=== PATIENT | male | born 1965 | race Caucasian/White ===

== ENCOUNTER → 2017-05-29 09:05 | Outpatient (REF) | payer BC, SELFPAY ==
[2017-05-29 14:00] LABS: Basophils # 0.1 K/mm3 (0-0.2); Basophils % 0.8 % (0.1-2.0); Eosinophils # 0.3 K/mm3 (0.0-0.4); Eosinophils % 4.4 % (0.1-12.0); Hematocrit 44.2 % (42.0-52.0); Hemoglobin 14.7 g/dL (14.1-18.0); Lymphocytes # 2.7 K/mm3 (0.7-4.5); Lymphocytes % 34.7 K/mm3 (10-50); Mean Corpuscular HGB Conc 33.2 g/dL (31.8-35.4); Mean Corpuscular Hemoglobin 31.7 pg (27.0-31.2); Mean Corpuscular Volume 95.5 fl (80-94); Mean Platelet Volume 8.9 fl (7.4-10.4); Monocytes # 0.5 K/mm3 (0.1-1.0); Monocytes % 6.5 % (1.7-9.3); Neutrophils # 4.2 K/mm3 (1.8-7.8); Neutrophils % 53.6 % (37.0-80.0); Platelet Count 222 K/mm3 (142-424); Red Blood Count 4.63 M/mm3 (4.60-6.20); Red Cell Distribution Width 12.6 % (11.5-17.5); White Blood Count 7.8 K/mm3 (4.8-10.8)
[2017-05-29 14:39] LABS: Alanine Aminotransferase 29 U/L (12-78); Albumin Level 4.4 gm/dL (3.4-5.0); Albumin/Globulin Ratio 1.6 (1.1-1.8); Alkaline Phosphatase 62 U/L (46-116); Anion Gap 12.8 mEq/L (5-15); Aspartate Amino Transferase 19 U/L (15-37); Blood Urea Nitrogen 15 mg/dL (7-18); Calcium 9.2 mg/dL (8.5-10.1); Carbon Dioxide 30 mmol/L (21.0-32.0); Chloride 104 mmol/L (98-107); Chol/HDL Ratio 3.1 (1-3.5); Cholesterol 199 mg/dL (140-200); Estimated Glomerular Filt Rate 88 ml/min (>60); GFR (African American) 107 ML/MIN (>60); Globulin 2.8 gm/dl (1.3-3.2); Glucose 143 mg/dL (74-106); HDL Cholesterol 64 mg/dL (27-67); LDL Cholesterol 112 mg/dL (0-130); Potassium 4.8 mmoL/L (3.5-5.1); Sodium 142 mmol/L (136-145); T4 (Thyroxine) 5.8 ug/dl (4.7-13.3); Total Protein,Serum 7.2 gm/dL (6.4-8.2); Triglycerides 115 mg/dL (30-200); VLDL Cholesterol 23 mg/dL (0-40)
[2017-05-31 11:09] LABS: PSA, Free 0.14 ng/mL; Prostate Specific Ag 0.6 ng/mL (0.0-4.0); Vitamin D 25 Hydroxy 9.5 ng/mL (30.0-100.0)
== END ==
LOC: LAB 09:05
PROVIDERS: Visit Provider Physician Assistant
DX: Z13.1 Encounter for screening for diabetes mellitus (principal); Z13.220 Encounter for screening for lipoid disorders; Z12.5 Encounter for screening for malignant neoplasm of prostate; Z13.29 Encounter for screening for other suspected endocrine disorder
CPT/HCPCS: 80053; 80061; 82652; 84153; 84154; 84436; 84443; 85025

== ENCOUNTER → 2017-11-26 13:56 | Outpatient (REF) | payer BC, SELFPAY ==
[2017-11-26 18:36] LABS: Basophils % 0.5 % (0.1-2.0); Eosinophils # 0.3 K/mm3 (0.0-0.4); Eosinophils % 3.5 % (0.1-12.0); Hematocrit 44.7 % (42.0-52.0); Hemoglobin 15.2 g/dL (14.1-18.0); Lymphocytes # 3.3 K/mm3 (0.7-4.5); Mean Corpuscular HGB Conc 33.9 g/dL (31.8-35.4); Mean Corpuscular Hemoglobin 32.1 pg (27.0-31.2); Mean Corpuscular Volume 94.8 fl (80-94); Mean Platelet Volume 8.7 fl (7.4-10.4); Monocytes # 0.5 K/mm3 (0.1-1.0); Monocytes % 6.3 % (1.7-9.3); Neutrophils % 49.7 % (37.0-80.0); Platelet Count 237 K/mm3 (142-424); Red Blood Count 4.72 M/mm3 (4.60-6.20); Red Cell Distribution Width 12.7 % (11.5-17.5); White Blood Count 8.1 K/mm3 (4.8-10.8)
[2017-11-26 19:48] LABS: Alanine Aminotransferase 24 U/L (12-78); Albumin Level 4.1 gm/dL (3.4-5.0); Albumin/Globulin Ratio 1.4 (1.1-1.8); Alkaline Phosphatase 59 U/L (46-116); Anion Gap 16.2 mEq/L (5-15); Aspartate Amino Transferase 12 U/L (15-37); Bilirubin,Total 0.6 mg/dL (0.2-1.0); Blood Urea Nitrogen 10 mg/dL (7-18); Calcium 8.8 mg/dL (8.5-10.1); Carbon Dioxide 25 mmol/L (21.0-32.0); Chloride 107 mmol/L (98-107); Chol/HDL Ratio 3.2 (1-3.5); Cholesterol 201 mg/dL (140-200); Creatinine,Serum 0.68 mg/dL (0.70-1.30); Estimated Glomerular Filt Rate 122 ml/min (>60); GFR (African American) 148 ML/MIN (>60); Glucose 74 mg/dL (74-106); HDL Cholesterol 63 mg/dL (27-67); LDL Cholesterol 102 mg/dL (0-130); Potassium 4.2 mmoL/L (3.5-5.1); Sodium 144 mmol/L (136-145); T4 (Thyroxine) 5.5 ug/dl (4.7-13.3); Thyroid Stimulating Hormone 3.82 uIU/ml (0.358-3.740); Total Protein,Serum 7.1 gm/dL (6.4-8.2); Triglycerides 178 mg/dL (30-200); VLDL Cholesterol 36 mg/dL (0-40)
[2017-11-28 16:42] LABS: PSA, Free 0.19 ng/mL; Prostate Specific Ag 0.5 ng/mL (0.0-4.0); Vitamin D 25 Hydroxy 11.3 ng/mL (30.0-100.0)
== END ==
LOC: LAB 13:56
PROVIDERS: Visit Provider Nurse Practitioner Family
DX: R53.1 Weakness (principal); R19.7 Diarrhea, unspecified; R10.84 Generalized abdominal pain; R53.83 Other fatigue
CPT/HCPCS: 80053; 80061; 82652; 84153; 84154; 84436; 84443; 85025

== ENCOUNTER → 2017-11-29 14:49 | Outpatient (REF) | payer BC, SELFPAY ==
[2017-11-29 14:53] LABS: Adenovirus F 40/41, stool Not Detected (NotDetected); Astrovirus Not Detected (NotDetected); Campylobacter Not Detected (NotDetected); Clostridium Difficile A/B, PCR Not Detected (NotDetected); Cryptosporidium Not Detected (NotDetected); Cyclospora Cayetanesis Not Detected (NotDetected); Entamoeba histolytica Not Detected (NotDetected); Enteroaggregative E coli Not Detected (NotDetected); Enterotoxigenic E coli Not Detected (NotDetected); Giardia lamblia Not Detected (NotDetected); Norovirus Not Detected (NotDetected); Plesimonas Shigalloides, PCR Not Detected (NotDetected); Rotavirus A Not Detected (NotDetected); Salmonella, PCR Not Detected (NotDetected); Sapovirus Not Detected (NotDetected); Shiga-like toxin E coli Not Detected (NotDetected); Shigella Enterovasive E coli Not Detected (NotDetected); Vibrio Cholerae Not Detected (NotDetected); Vibrio, PCR Not Detected (NotDetected); Yersinia Entercolitica, PCR Not Detected (NotDetected)
[2017-11-29 17:02] LABS: Enteropathogenic E coli Detected (NotDetected)
[2017-12-05 06:47] LABS: H. pylori Stool Ag, EIA Negative (Negative)
== END ==
LOC: LAB 14:49
PROVIDERS: Visit Provider Nurse Practitioner Family
DX: R53.1 Weakness (principal)
CPT/HCPCS: 87338; 87507

== ENCOUNTER → 2017-12-02 07:59 | Outpatient (CLI) | payer BC, SELFPAY ==
--- NOTE | 2017-12-02 08:30 | US_ITS ---
US abdomen complete HISTORY: Abdominal cramping, abdominal pain ITS.REASON: pain ORDERING PHYSICIAN: Radha Collier PATIENT AGE: 52 years COMPARISON: None FINDINGS: PANCREAS:Unremarkable. No obvious mass or abnormal fluid collection. No ductal dilatation LIVER:No focal liver lesions demonstrated. Homogeneous echogenicity. No intrahepatic biliary ductal dilatation evident RIGHT KIDNEY:Unremarkable. Normal size and echogenicity. No hydronephrosis LEFT KIDNEY:Unremarkable. No hydronephrosis. Normal size and echogenicity. GALLBLADDER:No gallstones, gallbladder wall thickening, pericholecystic fluid, or biliary dilatation. There is a small amount sludge within the gallbladder which is a question clinical significance. AORTA:No evidence of aneurysmal dilatation. SPLEEN:Unremarkable. Normal size and echogenicity ASCITES:None demonstrated. IMPRESSION: Small amount gallbladder sludge/concentrated bile otherwise negative abdominal ultrasound. No gallstones or other significant anomalies.
== END ==
PROVIDERS: Family Provider Physician Assistant; PCP Physician Assistant; Visit Provider Nurse Practitioner Family
DX: R10.84 Generalized abdominal pain (principal)
CPT/HCPCS: 76700

== ENCOUNTER → 2017-12-23 08:26 | Outpatient (POV) | payer BC, SELFPAY | PROVIDERS: Visit Provider Nurse Practitioner Acute Care | DX: Z00.00 Encounter for general adult medical examination without abnormal findings (principal) ==

== ENCOUNTER → 2017-12-25 10:12 | Outpatient (CLI) | payer BC, SELFPAY ==
--- NOTE | 2017-12-25 10:17 | NM_ITS ---
NM hepatobiliary w pharm HISTORY: ITS.REASON: Right upper quad pain ORDERING PHYSICIAN: Radha Collier PATIENT AGE: 52 years COMPARISON: None DOSE: 7.7 MCI TC Choletec Fatty Meal: Ensure FINDINGS: Homogeneous activity is present within the hepatic parenchyma. Activity is present in the gallbladder by 10 minutes. Activity is present in the small bowel by 20 minutes. The gallbladder ejection fraction is calculated to be 76% The patient did not report pain or other symptoms during the fatty meal. IMPRESSION: Unremarkable hepatobiliary scan and gallbladder ejection fraction. No evidence of common or cystic duct obstruction with normal gallbladder ejection fraction
== END ==
PROVIDERS: Family Provider Physician Assistant; PCP Physician Assistant; Visit Provider Nurse Practitioner Family
DX: K82.8 Other specified diseases of gallbladder (principal)
CPT/HCPCS: 78227

== ENCOUNTER → 2018-02-03 09:18 | Outpatient (POV) | payer BC, SELFPAY | PROVIDERS: Visit Provider Nurse Practitioner Acute Care | DX: Z00.00 Encounter for general adult medical examination without abnormal findings (principal) ==

== ENCOUNTER → 2018-02-04 11:44 | Outpatient (CLI) | payer BC, SELFPAY ==
[2018-02-04 11:48] LABS: Adenovirus F 40/41, stool Not Detected (NotDetected); Astrovirus Not Detected (NotDetected); Campylobacter Not Detected (NotDetected); Clostridium Difficile A/B, PCR Not Detected (NotDetected); Cryptosporidium Not Detected (NotDetected); Cyclospora Cayetanesis Not Detected (NotDetected); Entamoeba histolytica Not Detected (NotDetected); Enteroaggregative E coli Not Detected (NotDetected); Enteropathogenic E coli Not Detected (NotDetected); Enterotoxigenic E coli Not Detected (NotDetected); Giardia lamblia Not Detected (NotDetected); Norovirus Not Detected (NotDetected); Plesimonas Shigalloides, PCR Not Detected (NotDetected); Rotavirus A Not Detected (NotDetected); Salmonella, PCR Not Detected (NotDetected); Sapovirus Not Detected (NotDetected); Shiga-like toxin E coli Not Detected (NotDetected); Shigella Enterovasive E coli Not Detected (NotDetected); Vibrio Cholerae Not Detected (NotDetected); Vibrio, PCR Not Detected (NotDetected); Yersinia Entercolitica, PCR Not Detected (NotDetected)
== END ==
PROVIDERS: PCP Physician Assistant; Visit Provider Nurse Practitioner Acute Care
DX: R19.7 Diarrhea, unspecified (principal)
CPT/HCPCS: 87507

== ENCOUNTER → 2019-06-17 13:53 | Outpatient (CLI) | payer BC, SELFPAY ==
[2019-06-17 14:47] LABS: Chloride 103 mmol/L (98-107); Potassium 4.3 mmoL/L (3.5-5.1); Sodium 138 mmol/L (136-145)
[2019-06-17 14:50] LABS: Alanine Aminotransferase 22 U/L (12-78); Albumin Level 4.4 g/dl (3.5-5.0); Albumin/Globulin Ratio 1.9 (1.1-1.8); Alkaline Phosphatase 52 U/L (38-126); Anion Gap 11.3 mEq/L (5-15); Aspartate Amino Transferase 27 U/L (17-59); Bilirubin,Total 0.7 mg/dl (0.2-1.3); Blood Urea Nitrogen 18 mg/dl (9-20); Calcium 9.6 mg/dl (8.4-10.2); Carbon Dioxide 28 mmol/L (22.0-30.0); Chol/HDL Ratio 3.8 (1-3.5); Cholesterol 192 mg/dl (140-200); Estimated Glomerular Filt Rate 78 ml/min (>60); GFR (African American) 94 ML/MIN (>60); Globulin 2.3 g/dL (1.3-3.2); Glucose 93 mg/dl (74-100); HDL Cholesterol 50 mg/dl (40-60); Total Protein,Serum 6.7 g/dl (6.3-8.2); Triglycerides 128 mg/dl (30-150); VLDL Cholesterol 26 mg/dL (0-40)
[2019-06-17 15:02] LABS: Direct LDL Cholesterol 142.24 mg/dL (100-129)
[2019-06-17 15:22] LABS: T4 (Thyroxine) 6.2 ug/dl (5.53-11.0)
[2019-06-17 15:35] LABS: Thyroid Stimulating Hormone 2.73 uIU/mL (0.465-4.68)
[2019-06-17 21:09] LABS: Basophils # 0.1 K/mm3 (0-0.2); Eosinophils # 0.3 K/mm3 (0.0-0.4); Eosinophils % 3.3 % (0.1-12.0); Hematocrit 42.7 % (42.0-52.0); Lymphocytes # 2.6 K/mm3 (0.7-4.5); Lymphocytes % 35.1 % (10-50); Mean Corpuscular HGB Conc 32.7 g/dL (31.8-35.4); Mean Corpuscular Hemoglobin 32.1 pg (27.0-31.2); Mean Corpuscular Volume 98.1 fl (80-94); Mean Platelet Volume 9.5 fl (7.4-10.4); Monocytes # 0.5 K/mm3 (0.1-1.0); Monocytes % 6.8 % (1.7-9.3); Neutrophils # 4.1 K/mm3 (1.8-7.8); Neutrophils % 53.8 % (37.0-80.0); Platelet Count 225 K/mm3 (142-424); Red Blood Count 4.35 M/mm3 (4.60-6.20); Red Cell Distribution Width 12.7 % (11.5-17.5); White Blood Count 7.5 K/mm3 (4.8-10.8)
[2019-06-19 10:34] LABS: Folate 13.6 ng/mL (>3.0); PSA, Free 0.16 ng/mL; Prostate Specific Ag 0.6 ng/mL (0.0-4.0); Vitamin B12 541 pg/mL (232-1245); Vitamin D 25 Hydroxy 9.3 ng/mL (30.0-100.0)
== END ==
PROVIDERS: Visit Provider Physician Assistant
DX: E01.0 Iodine-deficiency related diffuse (endemic) goiter (principal); E55.9 Vitamin D deficiency, unspecified; R97.20 Elevated prostate specific antigen [PSA]
CPT/HCPCS: 80053; 80061; 82607; 82652; 82746; 84153; 84154; 84436; 84443; 85025

== ENCOUNTER → 2019-07-02 08:33 | Outpatient (CLI) | payer BC, SELFPAY ==
--- NOTE | 2019-07-02 08:41 | CT_ITS ---
PROCEDURE: CT LUNG SCREENING CLINICAL INDICATION: Smoker X 40 years Eighty pack-year smoking history, asymptomatic for lung cancer COMPARISON: [facility] CTA-CHEST from 09/05/2015 TECHNIQUE: The exam was performed on a GE Light Speed [address] scanner using 2.90 mGy CTDI. A low dose helical CT CHEST was performed on a multi-detector scanner. All CT scans at the facility use one or more dose reduction, viz: automated exposure control, ma/kV adjustment per patient size (including targeted exams where dose is matched to indication, i.e. head), or iterative reconstruction technique. The LDCT was performed in a facility that meets the criteria for the screening program. Data regarding this exam was submitted to ACR which is an approved registry. The order for this exam indicates that it came as a result of a lung cancer screening counseling shard decision-making visit that included all the elements required of such a visit including smoking cessation. The radiologist interpreting this exam meets the CMS criteria for the LDCT lung cancer screening program. The exam is reported using the Lung-RADS classification scale and reported to the ACR registry. NOTE: This study was performed for the specific purposes of lung cancer screening and is not an alternative to diagnostic chest CT. RADIATION DOSE: CTDI vol(CT dose Index-volume) = 2.90mG DLP (Dose Length Product) = 117.77 mGcm FINDINGS: COPD with paraseptal emphysema. Biapical fibronodular changes are present. Right apical nodule noted at 10 mm. This is probably not significantly changed given the slight difference in slice orientation and may be related to fibrotic change. 5 mm noncalcified nodule right upper lobe image 35 series 4 not readily apparent on the previous exam. 5 mm nodule right lower lobe image 47 series 4 also not readily apparent on the previous study. 5 mm noncalcified nodule left apex unchanged. 6 mm sub solid nodule left upper lobe image 31 not readily apparent previously OTHER FINDINGS: Coronary artery calcification. Old sternal fracture IMPRESSION: Lung rads category 3 probably benign finding. There are 3 new nodules not readily apparent on the previous study which are 6 mm or less Recommend six-month follow-up diagnostic CT without and with contrast. Dictated by: Murray Mayo MD 07/06/2019 09:24 Electronically signed by Murray Mayo MD in [place] 07/06/2019 09:24
--- NOTE | 2019-07-02 09:08 | US_ITS ---
PROCEDURE: US THYROID CLINICAL INDICATION: Thyromegaly COMPARISON: No exams were available for comparison FINDINGS: Right lobe: 4.3 x 1.8 x 1.3 cm Left lobe: 3.6 x 1.1 x 1.4 cm Isthmus: Unremarkable Additional findings: There is homogeneous echogenicity of both lobes of the thyroid gland. No discrete nodule IMPRESSION: Unremarkable thyroid ultrasound Dictated by: Murray Mayo MD 07/02/2019 17:40 Electronically signed by Murray Mayo MD in [place] 07/02/2019 17:40
== END ==
PROVIDERS: PCP Physician Assistant; Visit Provider Physician Assistant
DX: E01.0 Iodine-deficiency related diffuse (endemic) goiter (principal); R97.20 Elevated prostate specific antigen [PSA]; Z87.891 Personal history of nicotine dependence; Z12.2 Encounter for screening for malignant neoplasm of respiratory organs
CPT/HCPCS: 76536

== ENCOUNTER → 2019-11-16 12:22 | Outpatient (CLI) | payer BC, SELFPAY ==
[2019-11-17 15:22] LABS: Covid-19 Nasal PCR Sendout Lex NOT DETECTED
== END ==
PROVIDERS: PCP Physician Assistant; Visit Provider Physician Assistant
DX: Z03.818 Encounter for observation for suspected exposure to other biological agents ruled out (principal)
CPT/HCPCS: 87275; 87276; U0004

== ENCOUNTER → 2020-01-11 08:45 | Outpatient (CLI) | payer BC, SELFPAY ==
--- NOTE | 2020-01-11 08:45 | CT_ITS ---
PROCEDURE: CT CHEST WO/W CON CLINCAL INDICATION: 6 mth f/u follow up, lung nodules current smoker COMPARISON: CT [facility] CTA-CHEST from 09/05/[address] LUNG SCREENING from 07/02/2019 TECHNIQUE: IV Contrast: 75ml Optiray 350 Axial images obtained with sagittal and coronal reformats. All CT scans at the facility use one or more dose reduction, viz: automated exposure control, ma/kV adjustment per patient size (including targeted exams where dose is matched to indication, i.e. head), or iterative reconstruction technique. FINDINGS: HEART AND MEDIASTINAL STRUCTURES: There are scattered small mediastinal lymph nodes. Coronary artery calcifications are present. No mediastinal or hilar mass or adenopathy. No evidence of aortic aneurysm or dissection. No evidence of central pulmonary embolus. LUNGS AND PLEURAL SPACES: COPD with pulmonary fibrotic changes and scattered areas of scarring. Paraseptal emphysematous changes are present. There is a 1 cm irregular opacity in the right apex not significantly changed. Left apical nodular opacities are also noted not significantly changed. These are consistent with areas of scarring. No new suspicious nodules are evident. No central obstructing lesions. Previously noted retrosternal soft tissue density no longer apparent. Previously noted sternal fracture has healed. Previously noted 5 mm nodule in the right upper lobe centrally is not apparent on today's exam. Previously noted sub solid nodule left upper lobe not apparent on today's exam BONY STRUCTURES: Old right-sided rib fractures UPPER ABDOMEN: Unremarkable. ADDITIONAL FINDINGS: No other significant abnormalities. IMPRESSION: COPD with paraseptal emphysematous changes and scattered areas of scarring. Previously noted new nodules in the right upper lobe and left upper lobe are not evident on today's exam and may have been inflammatory or infectious. No new nodules apparent. Dictated by: Murray Mayo MD 01/12/2020 08:56 Murray Mayo MD in [place] 01/12/2020 08:56
[2020-01-11 09:37] LABS: Blood Urea Nitrogen 8 mg/dl (9-20); Estimated Glomerular Filt Rate 88 ml/min (>60); GFR (African American) 106 ML/MIN (>60)
== END ==
PROVIDERS: PCP Physician Assistant; Visit Provider Physician Assistant
DX: R91.1 Solitary pulmonary nodule (principal)
CPT/HCPCS: 36415; 71270; 82565; 84520; Q9967

== ENCOUNTER → 2021-02-15 18:11 | Outpatient (CLI) | payer BC, SELFPAY ==
[2021-02-15 19:02] LABS: Basophils # 0.1 K/mm3 (0-0.2); Basophils % 1.2 % (0.1-2.0); Eosinophils # 0.2 K/mm3 (0.0-0.4); Eosinophils % 2.6 % (0.1-12.0); Hematocrit 47.2 % (42.0-52.0); Hemoglobin 15.7 g/dL (14.1-18.0); Lymphocytes # 2.1 K/mm3 (0.7-4.5); Lymphocytes % 33.3 % (10-50); Mean Corpuscular HGB Conc 33.2 g/dL (31.8-35.4); Mean Corpuscular Hemoglobin 33.3 pg (27.0-31.2); Mean Corpuscular Volume 100.3 fl (80-94); Mean Platelet Volume 8.4 fl (7.4-10.4); Monocytes # 0.5 K/mm3 (0.1-1.0); Monocytes % 8.5 % (1.7-9.3); Neutrophils # 3.4 K/mm3 (1.8-7.8); Neutrophils % 54.4 % (37.0-80.0); Platelet Count 278 K/mm3 (142-424); Red Blood Count 4.71 M/mm3 (4.60-6.20); Red Cell Distribution Width 12.7 % (11.5-17.5); White Blood Count 6.3 K/mm3 (4.8-10.8)
[2021-02-15 19:05] LABS: Alanine Aminotransferase 24 U/L (12-78); Albumin Level 4.8 g/dl (3.5-5.0); Albumin/Globulin Ratio 1.7 (1.1-1.8); Alkaline Phosphatase 62 U/L (38-126); Anion Gap 15.4 mEq/L (5-15); Aspartate Amino Transferase 36 U/L (17-59); Bilirubin,Total 1.1 mg/dl (0.2-1.3); Blood Urea Nitrogen 10 mg/dl (9-20); Carbon Dioxide 28 mmol/L (22.0-30.0); Chloride 101 mmol/L (98-107); Chol/HDL Ratio 4.1 (1-3.5); Cholesterol 241 mg/dl (140-200); Estimated Glomerular Filt Rate 139 ml/min (>60); GFR (African American) 168 ML/MIN (>60); Globulin 2.9 g/dL (1.3-3.2); Glucose 74 mg/dl (74-100); HDL Cholesterol 59 mg/dl (40-60); Potassium 4.4 mmoL/L (3.5-5.1); Sodium 140 mmol/L (136-145); Total Protein,Serum 7.7 g/dl (6.3-8.2); Triglycerides 234 mg/dl (30-150); VLDL Cholesterol 47 mg/dL (0-40)
[2021-02-15 19:18] LABS: C-Reactive Protein 2.3 mg/L (0-4); Direct LDL Cholesterol 146.99 mg/dL (100-129)
[2021-02-15 19:22] LABS: 25-OH Vitamin D, Total 28.1 ng/mL (30-100)
[2021-02-15 19:29] LABS: Erythrocyte Sedimentation Rate 8 mm/hr (0-20)
[2021-02-15 19:38] LABS: Prostate Specific Ag Screen 0.7 ng/ml (0.0-4.0); Thyroid Stimulating Hormone 4.64 uIU/mL (0.465-4.68)
[2021-02-17 11:14] LABS: Anti-Centromere B Antibodies <0.2 AI (0.0-0.9); Anti-DNA (DS) Ab Qn 1 IU/mL (0-9); Anti-Jo-1 <0.2 AI (0.0-0.9); Anti-Smith Antibody <0.2 AI (0.0-0.9); Antichromatin Antibodies <0.2 AI (0.0-0.9); Antiscleroderma-70 Antibodies <0.2 AI (0.0-0.9); RA Latex Turbid. <10.0 IU/mL (0.0-13.9); RNP Antibodies <0.2 AI (0.0-0.9); Sjogren's Anti-SS-A <0.2 AI (0.0-0.9); Sjogren's Anti-SS-B <0.2 AI (0.0-0.9)
[2021-02-17 23:13] LABS: Anti-Cyclic Citrullinated Pept 6 units (0-19)
== END ==
LOC: LAB.DROPOF 18:12
PROVIDERS: Visit Provider Physician Assistant
DX: M25.50 Pain in unspecified joint (principal); E55.9 Vitamin D deficiency, unspecified; Z12.5 Encounter for screening for malignant neoplasm of prostate
CPT/HCPCS: 80053; 80061; 82306; 84443; 85025; 85651; 86140; 86200; 86225; 86235; 86431; G0103

== ENCOUNTER → 2021-09-27 07:19 | Outpatient (CLI) | payer BC, SELFPAY ==
--- NOTE | 2021-09-27 | XR_ITS ---
FINAL REPORT CLINICAL HISTORY: STRAIN OF MUSCLE LT SHOULDER FINDINGS: LEFT SHOULDER Three views were obtained. There is no acute fracture or dislocation. The joint spaces appear normal. No soft tissue abnormality is identified. IMPRESSION: No acute process. Reviewed, Interpreted and Dictated by Alejandro Fried III, MD Transcribed by Louann Fabian Authenticated by Alejandro Fried III, MD on 09/27/2021 08:55:44 AM [facility]
--- NOTE | 2021-09-27 07:25 | XR_ITS ---
FINAL REPORT CLINICAL HISTORY: OSTEOARTHRITIS, LEFT POSTERIOR KNEE PAIN FINDINGS: LEFT KNEE Three views were obtained. There is no acute fracture or dislocation. No joint effusion is identified. The joint spaces appear normal. No soft tissue abnormality is identified. IMPRESSION: No acute process. Reviewed, Interpreted and Dictated by Alejandro Fried III, MD Transcribed by Louann Fabian Authenticated by Alejandro Fried III, MD on 09/27/2021 08:55:45 AM [facility]
== END ==
PROVIDERS: PCP Physician Assistant; Visit Provider Internal Medicine Rheumatology
DX: S46.012A Strain of muscle(s) and tendon(s) of the rotator cuff of left shoulder, initial encounter (principal); M17.12 Unilateral primary osteoarthritis, left knee; M19.90 Unspecified osteoarthritis, unspecified site; R53.83 Other fatigue
CPT/HCPCS: 73030; 73562

== ENCOUNTER 2021-11-28 18:57 | Emergency (ER) | payer BC, SELFPAY ==
[2021-11-28 19:10] VITALS: BP 121/67; PULSE 86; RESP 19; TEMP 36.6; O2SAT 97; BMI 20.9
[2021-11-28 19:55] VITALS: BP 121/67; PULSE 86; RESP 19; TEMP 36.6; O2SAT 97
--- NOTE | 2021-11-28 19:56 | HMH.EDUTC ---
[facility] Disposition Clinical Impression: Encounter for laboratory testing for COVID-19 virus Disposition: Home, Self-Care Condition on Discharge: Good Instructions: DI for COVID-19 (Suspected or Confirmed ), Preventing the Spread of Coronavirus Discharge Instructions Additional Instructions: *Monitor Temp, Over the counter Motrin or Tylenol as directed/as needed Tylenol every 4 hours and Motrin every 6 hours (as long as your family doctor has told you that you can take it) for fever or pain. and straight to ER if unable to lower temp less than 101.0 after medication given *Warm salt water gargles may help to soothe the throat *Throat Lozenges *Warm fluids like tea with honey may help to soothe the throat *Sleep elevated *Humidifier/Vaporizer Follow up IMMEDIATELY for new or worsening symptoms or no Noticeable improvement over the next 48-72 hours. 911 for difficulty breathing or swallowing You were tested for today for COVID19 your test result should be back in the next 24-48 hours, you may check your results on the [facility] My Health Portal Make sure to take your Vitamins Vit. C Vit D and Zinc if you can take them Referrals: Halle Arauz PA [Primary Care Provider] - As needed Forms: Work/School Release Medical Decision Making - Daniel Inquiry Pt receiving controlled substance: No Daniel was queried for this patient: No Vital Signs: 11/28/21 19:10 Temperature 97.9 F Temperature Source Oral Pulse Rate [Right Brachial] 86 Respiratory Rate 19 Blood Pressure [Left Arm] 121/67 Blood Pressure Mean [Left Arm] 85 Blood Pressure Source [Left Arm] Automatic Cuff Blood Pressure Position [Left Arm] Sitting 02 Sat by Pulse Oximetry 97 Oxygen Delivery Method Room Air Orders (Tests/Meds): ORDERS Category Date Time Status Covid-19 Nasal PCR ([facility]) Routine Lab 11/28/21 19:06 Received [facility] HPI - General Stated complaint: covid test-exposed, cough,cortney Time Seen by Provider: 11/28/21 19:35 Mode of Arrival: Ambulatory Source of Information: Patient Limitations: No Limitations Description of Symptoms (Recalled from Triage Doc. by RN): COVID TEST D/T EXPOSURE. C/O CONGESTION AND COUGH X 2 DAYS HEENT Symptoms (Recalled from RN notes): Yes Resp Symptoms (Recalled from RN notes): Yes Skin Symptoms (Recalled from RN notes): No MS Symptoms (Recalled from RN notes): No Functional Status (Recalled from RN notes): WNL - History of Present Illness Provider Complaint: Patient states that he has been having nasal congestion and cough States that his took and at home test and was positive for COVID so he came in to get checked for COVID - Related Data Previous Rx's Medication Instructions Recorded atorvastatin 10 mg tablet 10 mg PO QHS 90 Days #90 tab 02/20/21 cholecalciferol (vitamin D3) 25 1,000 unit PO DAILY #90 cap 02/20/21 mcg (1,000 unit) capsule ergocalciferol (vitamin D2) 1,250 50,000 unit PO QWEEK 90 Days #14 02/20/ mcg (50,000 unit) capsule cap diclofenac sodium 75 mg 75 mg PO BID #60 tab 06/21/21 tablet,delayed release Allergies Allergy/AdvReac Type Severity Reaction Status Date / Time No Known Allergies Allergy Verified 06/21/21 09:38 - Worker's Comp Is this a Worker's Comp case?: No [facility] History - Hepatitis A Screen Attestation statement:: This patient has been screened for Hepatitis A risk factors. I have reviewed the patient's past medical history: Yes Medical History: Reports:: Hypertension Denies:: Diabetes Mellitus Type 1, Diabetes Mellitus Type 2, Internal Pacemaker, Lung Disease, Seizures Comment: CRACKED STERNUM Other Surgeries: Yes: No Previous Surgery. No: Pacemaker Amputation: No Fractures: Yes - Social History Smoking Status: Former smoker Tobacco Type: cigarettes # Packs/Day (cigarettes): 1 Alcohol Intake: current Alcohol Intake Frequency:: 3 or more drinks per day Substance Use Type: denies use Occupational Status: employed Household Member
== END 2021-11-28 20:00 | disposition home or self-care (01) ==
PROVIDERS: Emergency Provider Nurse Practitioner; PCP Physician Assistant
DX: U07.1 COVID-19
CPT/HCPCS: 99212; C9803; G0463; U0003; U0005

== ENCOUNTER → 2022-05-23 11:06 | Outpatient (CLI) | payer BC, SELFPAY ==
[2022-05-23 16:04] LABS: Alanine Aminotransferase 19 U/L (12-78); Albumin/Globulin Ratio 1.9 (1.1-1.8); Alkaline Phosphatase 59 U/L (38-126); Anion Gap 11.5 mEq/L (5-15); Aspartate Amino Transferase 28 U/L (17-59); Bilirubin,Total 0.9 mg/dl (0.2-1.3); Blood Urea Nitrogen 18 mg/dl (9-20); Calcium 9.4 mg/dl (8.4-10.2); Carbon Dioxide 28 mmol/L (22.0-30.0); Chloride 103 mmol/L (98-107); Chol/HDL Ratio 4.8 (1-3.5); Cholesterol 249 mg/dl (140-200); Estimated Glomerular Filt Rate 87 ml/min (>60); GFR (African American) 105 ML/MIN (>60); Globulin 2.6 g/dL (1.3-3.2); Glucose 102 mg/dl (74-100); HDL Cholesterol 52 mg/dl (40-60); Potassium 4.5 mmoL/L (3.5-5.1); Sodium 138 mmol/L (136-145); Total Protein,Serum 7.6 g/dl (6.3-8.2); Triglycerides 152 mg/dl (30-150); VLDL Cholesterol 30 mg/dL (0-40)
[2022-05-23 16:15] LABS: Direct LDL Cholesterol 160.26 mg/dL (100-129)
[2022-05-23 16:25] LABS: 25-OH Vitamin D, Total 29.9 ng/mL (30-100)
[2022-05-23 16:38] LABS: Prostate Specific Ag Screen 0.6 ng/ml (0.0-4.0); Thyroid Stimulating Hormone 3.37 uIU/mL (0.465-4.68)
[2022-05-23 17:08] LABS: Basophils # 0.1 K/mm3 (0-0.2); Eosinophils # 0.3 K/mm3 (0.0-0.4); Eosinophils % 3.2 % (0.1-12.0); Hematocrit 43.1 % (42.0-52.0); Hemoglobin 14.5 g/dL (14.1-18.0); Lymphocytes # 2.3 K/mm3 (0.7-4.5); Mean Corpuscular HGB Conc 33.7 g/dL (31.8-35.4); Mean Corpuscular Hemoglobin 32.5 pg (27.0-31.2); Mean Corpuscular Volume 96.5 fl (80-94); Mean Platelet Volume 9.2 fl (7.4-10.4); Monocytes # 0.6 K/mm3 (0.1-1.0); Monocytes % 6.6 % (1.7-9.3); Neutrophils # 5.2 K/mm3 (1.8-7.8); Neutrophils % 62.1 % (37.0-80.0); Platelet Count 296 K/mm3 (142-424); Red Blood Count 4.46 M/mm3 (4.60-6.20); Red Cell Distribution Width 12.8 % (11.5-17.5); White Blood Count 8.4 K/mm3 (4.8-10.8)
== END ==
PROVIDERS: PCP Physician Assistant; Visit Provider Physician Assistant
DX: Z00.00 Encounter for general adult medical examination without abnormal findings (principal); E55.9 Vitamin D deficiency, unspecified; Z79.899 Other long term (current) drug therapy; Z12.5 Encounter for screening for malignant neoplasm of prostate
CPT/HCPCS: 80053; 80061; 82306; 84443; 85025; G0103

== ENCOUNTER → 2022-06-07 08:12 | Outpatient (CLI) | payer BC, SELFPAY ==
--- NOTE | 2022-06-07 08:12 | CT_ITS ---
FINAL REPORT CLINICAL HISTORY: lung cancer screening CURRENT SMOKER 1PPD X 45 YEARS COMPARISON: 07/02/2019 FINDINGS: Low-Dose Chest CT Axial images were obtained from the lung apex to the mid abdomen by computed tomography. Low-dose protocol was utilized. CTDI vol (mGy): 2.90 DLP (mGy-cm): 116.20 There is no axillary adenopathy. There is no hilar or mediastinal adenopathy. The heart is proper size. There is no pericardial or pleural effusion. On the lung window images, there is a density again identified in the right apex which is stable and favored to be postinflammatory. It appears triangular in configuration and extends to the pleural margin. Similar postinflammatory changes are seen at the left apex. The previously noted nodules in the left upper lobe are no longer seen. The small nodules in the right upper lobe are no longer seen. Limited images of the upper abdomen are unremarkable. IMPRESSION: Biapical pleural and parenchymal scarring. Previously noted multiple nodules seen on exam from June 2019 have resolved, probably inflammatory in nature. Lung RADS category 2. Recommend 12 month follow-up low-dose chest CT. Reviewed, Interpreted and Dictated by Abdifatah Sebastian MD Transcribed by Marilyn Randolph Authenticated and [facility]
== END ==
PROVIDERS: PCP Physician Assistant; Visit Provider Physician Assistant
DX: Z87.891 Personal history of nicotine dependence (principal); Z12.2 Encounter for screening for malignant neoplasm of respiratory organs
CPT/HCPCS: 71271

== ENCOUNTER 2022-09-13 08:33 | Day surgery (SDC) | payer BC, SELFPAY ==
[2022-09-06 14:05] VITALS: BMI 21.7
[2022-09-13 09:05] VITALS: BP 127/90; PULSE 96; RESP 18; TEMP 36.9; O2SAT 98
--- NOTE | 2022-09-13 09:11 | SUR.PREOP ---
Progress # given to
--- NOTE | 2022-09-13 09:23 | P.PN_ITS ---
[facility] Disclaimer: The information contained in this section may have been updated after the patient was seen, as this information can be updated by other users. Medical History Bloating Hypothyroidism Vitamin D deficiency (~06/04/17) Surgical History History of colonoscopy Family History Other No significant family history Social History Smoking Status: Current every day smoker tobacco type: cigarettes packs per day: 1 pack-years: 42 alcohol intake: current substance use type: denies use current occupational status: employed Travel in the last 8 weeks: None household members: spouse housing: house marital status: education level: vocational service: No caffeine: Yes special lis needs: No do you feel safe at home: Yes victim of physical abuse: No victim of emotional abuse: No victim of sexual abuse: No would you like helpful sources: No [facility] Anesthesia Checklist Patient Identification Patient Identification: Arm Band and Verbal (Name & ) Structural Data Admitted From: Home Planned Operative Procedure/s: Colonoscopy Consent for Planned Operative Procedure(s) Verified: Yes NPO Status Verified Time NPO: 00:00 Additional verifications Anesthesia Reactions: No Airway Assessment C-Spine Mobility Assessed: Yes TMJ Mobility Assessed: Yes Dentition: Poor Dentition Neurological Assessment Level of Consciousness: Awake Hx Seizures: No Numbness or tingling in extremities: No Anesthesia Plan Anesthesia Risk discussed: Yes Anesthesia Plan: Verified ASA Class: II Anesthesia Type: MAC
[2022-09-13 09:40] VITALS: O2SAT 98
--- NOTE | 2022-09-13 09:56 | HMH.SCOPE ---
Procedure: Date: 09/13/22 Patient Date of :: 1965 Procedure Performed:: Screening coolonoscopy Indications:: History of polyps Performing Provider:: Candido Vega MD Referring Provider:: Halle Arauz Sedation:: Propofol Procedure:: After placing the patient in the left lateral decubitus position, the colonoscopy was gently inserted into the rectum and under direct visualization advanced to the cecum which was identified by transillumination in the right lower quadrant, identification of the ileocecal valve, appendiceal orifice, and cecal strap. Color, texture, mucosa, and anatomy of the colon were carefully examined with the scope. Findings:: Anal canal: normal Rectum: normal Sigmoid colon: normal without polyps or inflammatory changes Descending colon: normal without polyps or inflammatory changes Splenic flexure: normal Transverse colon: normal without polyps or inflammatory changes Hepatic flexure: normal Ascending colon: normal without polyps or inflammatory changes Cecum: normal Terminal ileum: not visualized Impression: Normal colonoscopy Recommendations:: Follow up examination in about FIVE years or so, sooner if clinically indicated. Complications:: None Estimated blood obtained (mL): 0
[2022-09-13 10:00] VITALS: BP 94/66; PULSE 108; RESP 17; TEMP 36.3; O2SAT 95
[2022-09-13 10:10] VITALS: BP 98/71; PULSE 99; RESP 17; O2SAT 96
[2022-09-13 10:20] VITALS: BP 119/62; PULSE 92; RESP 17; O2SAT 97
[2022-09-13 10:30] VITALS: BP 122/85; PULSE 86; RESP 17; O2SAT 98
== END 2022-09-13 10:44 | disposition home or self-care (01) ==
PROVIDERS: PCP Physician Assistant; Visit Provider Internal Medicine Gastroenterology
PROC: 0DJD8ZZ Inspection of Lower Intestinal Tract, Via Natural or Artificial Opening Endoscopic (ICD-10-PCS; CPT 45378; principal; 2022-09-13 10:00)
DX: Z12.11 Encounter for screening for malignant neoplasm of colon (principal); Z86.010 Personal history of colon polyps; F17.210 Nicotine dependence, cigarettes, uncomplicated; Z79.899 Other long term (current) drug therapy
CPT/HCPCS: 45378; J2704

== ENCOUNTER 2023-06-20 12:28 | Outpatient (CLI) | payer BC, SELFPAY ==
[2023-06-20 13:04] LABS: Basophils % 0.4 % (0.1-2.0); Eosinophils # 0.2 K/mm3 (0.0-0.4); Eosinophils % 2.5 % (0.1-12.0); Hematocrit 46.6 % (42.0-52.0); Hemoglobin 15.9 g/dL (14.1-18.0); Lymphocytes # 2.2 K/mm3 (0.7-4.5); Lymphocytes % 29.4 % (10-50); Mean Corpuscular HGB Conc 34.1 g/dL (31.8-35.4); Mean Corpuscular Hemoglobin 33.9 pg (27.0-31.2); Mean Corpuscular Volume 99.4 fl (80-94); Mean Platelet Volume 8.8 fl (7.4-10.4); Monocytes # 0.5 K/mm3 (0.1-1.0); Neutrophils # 4.5 K/mm3 (1.8-7.8); Neutrophils % 60.7 % (37.0-80.0); Platelet Count 285 K/mm3 (142-424); Red Blood Count 4.69 M/mm3 (4.60-6.20); Red Cell Distribution Width 12.5 % (11.5-17.5); White Blood Count 7.5 K/mm3 (4.8-10.8)
[2023-06-20 13:44] LABS: Alanine Aminotransferase 18 U/L (12-78); Albumin Level 4.9 g/dl (3.5-5.0); Alkaline Phosphatase 93 U/L (38-126); Amylase 80 U/L (30-110); Aspartate Amino Transferase 24 U/L (17-59); Bilirubin,Direct 0.2 mg/dl (0.0-0.4); Bilirubin,Indirect 0.8 mg/dL (0.0-0.9); Bilirubin,Unconjugated 0.7 mg/dL (0.0-1.1); Blood Urea Nitrogen 7 mg/dl (9-20); Calcium 9.9 mg/dl (8.4-10.2); Carbon Dioxide 30 mmol/L (22.0-30.0); Chloride 101 mmol/L (98-107); Chol/HDL Ratio 4.5 (1-3.5); Cholesterol 237 mg/dl (140-200); Estimated Glomerular Filt Rate 99 ml/min (>60); GFR (African American) 120 ML/MIN (>60); Globulin 2.5 g/dL (1.3-3.2); Glucose 89 mg/dl (74-100); HDL Cholesterol 53 mg/dl (40-60); Sodium 138 mmol/L (136-145); Total Protein,Serum 7.4 g/dl (6.3-8.2); Triglycerides 57 mg/dl (30-150); VLDL Cholesterol 11 mg/dL (0-40)
[2023-06-20 13:56] LABS: Direct LDL Cholesterol 146.71 mg/dL (100-129)
[2023-06-20 14:03] LABS: 25-OH Vitamin D, Total 34.4 ng/mL (30-100)
[2023-06-20 14:15] LABS: Thyroid Stimulating Hormone 1.15 uIU/mL (0.465-4.68)
[2023-06-20 14:50] LABS: Vitamin B12 444 pg/mL (239-931)
== END 2023-06-20 23:59 ==
LOC: LAB.DROPOF 12:28
PROVIDERS: PCP Family Medicine; Visit Provider Family Medicine
DX: F19.10 Other psychoactive substance abuse, uncomplicated (principal); Z86.39 Personal history of other endocrine, nutritional and metabolic disease; Z79.899 Other long term (current) drug therapy
CPT/HCPCS: 80053; 80061; 80076; 82150; 82306; 82607; 82746; 84443; 85025

== ENCOUNTER 2023-07-29 12:52 | Outpatient (CLI) | payer BC, SELFPAY ==
--- NOTE | 2023-07-29 12:57 | CA_ITS ---
FINAL REPORT TECHNIQUE: Color Doppler, duplex Doppler and cheng scale sonography of the bilateral neck vasculature was performed. Velocities were measured in the carotid arteries. Stenosis evaluation based on velocity criteria. CLINICAL HISTORY: DIZZINESS,HTN FINDINGS: The peak systolic velocity of the right common carotid artery is 78 cm/sec and internal carotid artery 50 to cm/sec. The diastolic velocity in the internal carotid artery is 19 cm/sec. The ICA/CCA ratio is 0.7. Visually, a small amount of plaque is seen. These findings are consistent with less than 50% stenosis. The external carotid artery is patent. The right vertebral artery is patent with antegrade flow. The peak systolic velocity of the left common carotid artery is 76 cm/sec and internal carotid artery 58 cm/sec. The diastolic velocity in the internal carotid artery is 21 cm/sec. The ICA/CCA ratio is 0.76. Visually, a small amount of plaque is seen. These findings are consistent with less than 50% stenosis. The external carotid artery is patent. The left vertebral artery is patent with antegrade flow. IMPRESSION: No evidence of significant carotid stenosis. Bilateral patent vertebral arteries. If indicated, CTA or MRA could further evaluate. Reviewed, Interpreted and Dictated by Alejandro Fried III, MD Transcribed by Hazel Lozano Authenticated and [facility]
--- NOTE | 2023-07-29 12:57 | CA_ITS ---
APPROVED REPORT EXAM: Comprehensive 2D, Doppler, and color-flow Echocardiogram Director Epidemiology: Yulissa Reilly RVT Ht: 6 ft 0 in Wt: 155lbs BSA: 1.91 BP: 154/82 mmHg Indications: DIZINESS,HTN,ABN EKG,ETOH USE 2D Dimensions LA Volume 16.40 mL LA Volume Index 8.59 mL/m2 (M/F) 16-34 M-Mode Dimensions RVDd 2.34 cm (0.9-2.6) LA Diam 2.29 cm (1.9-4.0) LVDd 4.31 cm (3.5-5.7) LVDs 3.16 cm (3.5-5.7) IVSd 0.47 cm (0.6-1.1) PWd 0.66 cm (0.6-1.1) EF (Teich) 52.50% FS 26.70% EDV (Teich) 83.50 mL ESV (Teich) 39.70 mL LV Diastology E Decel Time 200 (160-240 msec) E/A Ratio 0.8 Aortic Valve OMI Index 1.16 cm2/m2 AoV Peak Alf. 102.0 (50-130 cm/s) AI PHT 376.00 ms AO Peak GR. 4.10 mmHg AO Mean GR. 2.40 (<5 mmHg) AO VTI 17.8 (18-25 cm) OMI (VTI) 2.27 (2.5-4.5 cm2) Mitral Valve MV E Max Alf. 54.0 (40-130 cm/s) MV A Velocity 66.0 (40-130 cm/s) E/A Ratio 0.81 MV PHT 59.0 ms Pulmonary Valve PV Peak Velocity 64.0 (50-150 cm/s) Tricuspid Valve TR P. Velocity 269.00 cm/s RAP Estimate 10.00 mmHg RVSP 38.90 mmHg Left Ventricle The left ventricle is normal size. The left ventricular systolic function is low normal. There is normal left ventricular wall thickness. There is borderline global hypokinesis present. The left ventricular diastolic function is normal. LVEF is 50%. Right Ventricle Right ventricle is mildly dilated. Right ventricle is mildly hypokinetic. Atria The left atrium size is normal. The right atrium size is normal. There is no Doppler evidence of interatrial shunt. Aortic Valve The aortic valve is mildly thickened. There is no aortic valvular stenosis. Mild aortic regurgitation. Mitral Valve The mitral valve leaflets are mildly thickened. No evidence of mitral valve stenosis. Trace mitral regurgitation. Tricuspid Valve The tricuspid valve leaflets are thin and pliable. Trace tricuspid regurgitation. There is insufficient TR jet to estimate RVSP. Pulmonic Valve The pulmonary valve is normal in structure. Trace pulmonic regurgitation. Great Vessels The aortic root is normal in size. The ascending aorta is normal in size. Pericardium There is no pericardial effusion. Other Information Study Quality: Fair Conclusion Normal biventricular systolic function. Mildly dilated RV with mild reduction in RV function. Mild AI. Electronically signed by : Joi Soto MD 07/30/2023 13:12:03
== END 2023-07-29 23:59 ==
LOC: RT 12:53
PROVIDERS: PCP Family Medicine; Visit Provider Family Medicine
DX: R42 Dizziness and giddiness (principal); R94.31 Abnormal electrocardiogram [ECG] [EKG]
CPT/HCPCS: 93306; 93880

== ENCOUNTER 2023-08-01 22:20 | Observation (INO) | payer BC, SELFPAY ==
[2023-08-01 22:20] VITALS: BP 172/116; PULSE 121; RESP 24; TEMP 36.6; O2SAT 88; BMI 20.7
--- NOTE | 2023-08-01 22:21 | ECG_ITS ---
APPROVED REPORT Exam: Resting ECG HR:101 bpm ECG Measurements Heart Rate 101 AXES HI 159 P 88 QRSd 97 QRS 94 QT 332 T 74 QTc 390 Conclusion SINUS TACHYCARDIA WITH OCCASIONAL SUPRAVENTRICULAR PREMATURE COMPLEXES POSSIBLE LEFT ATRIAL ENLARGEMENT [-0.1mV P-WAVE IN V1/V2] BORDERLINE RIGHT AXIS DEVIATION [QRS AXIS > 90] ABNORMAL RHYTHM ECG Electronically signed by : ALEKSANDAR MANZO, 08/02/2023 11:42:30
--- NOTE | 2023-08-01 22:24 | XR_ITS ---
PROCEDURE INFORMATION: Exam: XR Chest Exam date and time: 08/01/2023 10:28 PM Age: 58 years old Clinical indication: Shortness of breath; Additional info: SOA TECHNIQUE: Imaging protocol: Radiologic exam of the chest. Views: 1 view. COMPARISON: CT LUNG SCREENING 06/07/2022 8:26 AM FINDINGS: Lungs: Hyperinflation compatible with COPD. Lungs are otherwise clear. Pleural spaces: Unremarkable. No pleural effusion. No pneumothorax. Heart/Mediastinum: Unremarkable. No cardiomegaly. Bones/joints: Unremarkable. IMPRESSION: COPD. No acute disease.
[2023-08-01 22:31] LABS: VBG Base Excess -0.1 mmol/L (-2.4-2.3); VBG HCO3 24.4 mmol/L (23-30); VBG Oxygen Saturation 87.6 % (50-70); VBG PCO2 38.7 mmol/L (35-51); VBG PH 7.42 mmol/L (7.31-7.41); VBG PO2 54.5 mmol/L (28-40); VBG Total CO2 25.6 mmol/L (23-27)
[2023-08-01 22:32] LABS: Basophils # 0.3 K/mm3 (0-0.2); Basophils % 2.1 % (0.1-2.0); Eosinophils # 4.3 K/mm3 (0.0-0.4); Eosinophils % 31.6 % (0.1-12.0); Hematocrit 45.3 % (42.0-52.0); Hemoglobin 15.4 g/dL (14.1-18.0); Lymphocytes # 2.6 K/mm3 (0.7-4.5); Lymphocytes % 18.7 % (10-50); Mean Corpuscular HGB Conc 34.1 g/dL (31.8-35.4); Mean Corpuscular Hemoglobin 33.2 pg (27.0-31.2); Mean Corpuscular Volume 97.4 fl (80-94); Mean Platelet Volume 7.7 fl (7.4-10.4); Monocytes # 0.9 K/mm3 (0.1-1.0); Monocytes % 6.6 % (1.7-9.3); Neutrophils # 5.6 K/mm3 (1.8-7.8); Neutrophils % 40.9 % (37.0-80.0); Platelet Count 301 K/mm3 (142-424); Red Blood Count 4.65 M/mm3 (4.60-6.20); Red Cell Distribution Width 13.4 % (11.5-17.5); White Blood Count 13.6 K/mm3 (4.8-10.8)
[2023-08-01 22:34] LABS: Lactate Venous 2.4 mmol/L (0.4-2.0)
[2023-08-01 22:39] LABS: Chloride 103 mmol/L (98-107)
[2023-08-01] MEDS: METHYLPREDNISOLONE SOD SUCC 125MG VIAL 125 MG IV (22:39)
[2023-08-01 22:40] LABS: Potassium 4.3 mmoL/L (3.5-5.1); Sodium 138 mmol/L (136-145)
[2023-08-01 22:42] LABS: Alanine Aminotransferase 31 U/L (12-78); Aspartate Amino Transferase 30 U/L (17-59); Blood Urea Nitrogen 11 mg/dl (9-20); Creatinine Clearance Estimated 112 mL/min (50-200); Estimated Glomerular Filt Rate 115 ml/min (>60); GFR (African American) 140 ML/MIN (>60)
[2023-08-01 22:43] LABS: Albumin Level 4.3 g/dl (3.5-5.0); Albumin/Globulin Ratio 1.3 (1.1-1.8); Alkaline Phosphatase 52 U/L (38-126); Anion Gap 10.3 mEq/L (5-15); Bilirubin,Total 1.1 mg/dl (0.2-1.3); Calcium 9.5 mg/dl (8.4-10.2); Carbon Dioxide 29 mmol/L (22.0-30.0); Globulin 3.2 g/dL (1.3-3.2); Glucose 101 mg/dl (74-100); Total Protein,Serum 7.5 g/dl (6.3-8.2)
[2023-08-01] MEDS: LACTATED RINGERS 1000ML 1,000 ML 999 ML IV (22:51)
[2023-08-01] MEDS: IPRATROPIUM/ALBUTEROL 3 ML NEB 9 ML IH (22:51)
[2023-08-01 22:53] LABS: NT Pro Brain Natriuretic Pep. 252 pg/mL (0-125)
[2023-08-01 22:58] LABS: Troponin I < 0.01 ng/ml (0.00-0.034)
--- NOTE | 2023-08-01 22:59 | HMH.EDCP ---
Discharge Plan Disposition Chief Complaint: Shortness of Breath/Dyspnea Prescriptions Prescriptions: No Action diclofenac sodium 75 mg tablet,delayed release (DR/EC) 75 mg PO BID Qty: 60 0RF cholecalciferol (vitamin D3) 1,250 mcg (50,000 unit) capsule 1,250 mcg PO WEEKLY Qty: 5 0RF sertraline 25 mg tablet 25 mg PO DAILY Qty: 30 2RF bisoprolol fumarate 5 mg tablet 5 mg PO DAILY Qty: 30 3RF ezetimibe 10 mg tablet 10 mg PO DAILY Qty: 30 2RF Discharge ED Provider: Charles Machuca HPI <Charles Machuca MD - Last Filed: 08/01/23 23:08> General Chief Complaint: Shortness of Breath/Dyspnea Stated Complaint: chest pain Time Seen by Provider: 08/01/23 22:26 Mode of Arrival: Ambulatory Source of Information: Patient Limitations: No Limitations Description of Symptoms (Recalled from ER Triage Doc. by RN): pt c/o chest tighness and SOA since saturday History of Present Illness HPI narrative: 58-year-old male history of COPD, hypertension, hypothyroidism presenting with shortness of breath. Patient states that he has been told that he does not have COPD, but for the past 3 to 4 days, he has been getting progressively short of breath. Cough productive of white sputum, this is new. No fevers or chills, but chest pressure has been getting worse since that time. All of this is worse with exertion. No lower extremity edema, nausea, diaphoresis, or any other concerns. Please note that above description of symptoms, in this electronic medical record under categorization of recalled from ER triage doctor by RN are reflective of an initial nursing assessment, however, is not reflective of my full history and physical exam that was personally taken and clarified. Consequentially, this preceding description of symptoms, which may include the patient's categorized chief complaint in the EMR, do not reflect my personal clinical impression, and the ultimate description of history of present illness and patient stated complaints should be deferred to this section of the note. Unless stated otherwise or congruent with this section of the note, additional signs, symptoms, or incongruence should be interpreted as inaccurate with my clinical impression. Related Data Previous Rx's Medication Instructions Recorded bisoprolol fumarate 5 mg tablet 5 mg PO DAILY #30 tabs 06/20/23 cholecalciferol (vitamin D3) 1,250 1,250 mcg PO WEEKLY #5 caps 06/20/23 mcg (50,000 unit) capsule diclofenac sodium 75 mg 75 mg PO BID #60 tabs 06/20/23 tablet,delayed release sertraline 25 mg tablet 25 mg PO DAILY #30 tabs 06/20/23 ezetimibe 10 mg tablet 10 mg PO DAILY #30 tabs 06/21/23 Allergies Allergy/AdvReac Type Severity Reaction Status Date / Time No Known Allergies Allergy Verified 07/15/23 09:41 [facility] <Charles Machuca MD - Last Filed: 08/01/23 23:08> [facility] Disclaimer: The information contained in this section may have been updated after the patient was seen, as this information can be updated by other users. Medical History Bloating Hypothyroidism Vitamin D deficiency (~06/04/17) Surgical History History of colonoscopy Family History Other No significant family history Social History Smoking Status: Current every day smoker tobacco type: cigarettes packs per day: 1 alcohol intake: current substance use type: denies use current occupational status: employed Travel in the last 8 weeks: None household members: spouse housing: house marital status: education level: vocational service: No caffeine: Yes special lis needs: No do you feel safe at home: Yes victim of physical abuse: No victim of emotional abuse: No victim of sexual abuse: No would you like helpful sources: No <Charles Machuca MD - Last Filed: 08/01/23 23:08> ROS Obtained: Yes All systems reviewed & no additional complaints except as documented Physical Exam <Charles Machuca MD - Last Filed: 08/01/23 23:08> General General appearance: alert and in distress (Respiratory) Neck Neck exam: Present trachea midline Chest Chest inspection: Present normal inspection and symmetric chest wall rise Respiratory Respiratory exam: Present wheezes (Diffuse, bilateral), accessory muscle use and prolonged expiratory phase; Absent respiratory distress or stridor Cardiovascular Cardiovascular exam: Present regular rate and normal rhythm Extremities Exam Extremities exam: Absent edema Neurological Exam Neurological exam: Present alert, oriented X3 and CN II-XII intact Skin Skin exam: Present warm and dry; Absent cyanosis, diaphoresis or pallor HEART Score <Charles Machuca MD - Last Filed: 08/01/23 23:08> HEART Score HEART Score assessment performed?: Yes HEART Score: 3 <Geovanni Lazaro MD - Last Filed: 08/02/23 00:23> HEART Score History (anamnesis): Slightly suspicious ECG: Normal Age: 45-65 years Risk factors: 1-2 risk factors Troponin: </= normal limit HEART Score: 2 Critical Care <Charles Machuca MD - Last Filed: 08/01/23 23:08> Critical Care Time Critical Care Time: No Medical Decision Making <Charles Machuca MD - Last Filed: 08/01/23 23:08> Medical Records Medical records reviewed: Yes I reviewed the patient's medical records. Daniel Inquiry Pt receiving controlled substance: No Daniel was queried for this patient: No Vital Signs Vital Signs: 08/01/23 22:20 08/01/23 23:00 08/01/23 23:30 Temperature 97.8 F Temperature Source Oral Pulse Rate 99 H 103 H Pulse Rate [Left] 121 H Respiratory Rate 24 18 14 Blood Pressure 139/83 132/83 Blood Pressure [Right Arm] 172/116 H Blood Pressure Mean 102 99 Blood Pressure Mean [Right Arm] 134 02 Sat by Pulse Oximetry 88 L 94 L 93 L Oxygen Delivery Method Room Air Lab Data Labs: Lab Results 08/01/23 22:15: WBC 13.6 H, RBC 4.65, Hgb 15.4, Hct 45.3, MCV 97.4 H, MCH 33.2 H, MCHC 34.1, RDW 13.4, Plt Count 301, MPV 7.7, Neut % (Auto) 40.9, Lymph % (Auto) 18.7, [place] % (Auto) 6.6, Eos % (Auto) 31.6 H, Baso % (Auto) 2.1 H, Neut # (Auto) 5.6, Lymph # (Auto) 2.6, [place] # (Auto) 0.9, Eos # (Auto) 4.3 H, Baso # (Auto) 0.3 H, Sodium 138, Potassium 4.3, Chloride 103, Carbon Dioxide 29, Anion Gap 10.3, BUN 11, Creatinine 0.70, Estimated Creat Clear 112, Estimated GFR 115, Est GFR ( Amer) 140, Glucose 101 H, Calcium 9.5, Total Bilirubin 1.1, AST 30, ALT 31, Alkaline Phosphatase 52, Troponin I < 0.01, NT-Pro-B Natriuret Pep 252 H, Total Protein 7.5, Albumin 4.3, Globulin 3.2, Albumin/Globulin Ratio 1.3 08/01/23 22:24: VBG pH 7.42 H, VBG pCO2 38.7, VBG pO2 54.5 H, VBG HCO3 24.4, VBG Total CO2 25.6, VBG O2 Saturation 87.6 H, VBG Base Excess -0.1, VBG Lactic Acid 2.4 H 08/01/23 22:15 08/01/23 22:15 Response Orders (Tests/Meds): ED MEDICATIONS Generic Name Dose Route Start Last Admin Trade Name Freq PRN Reason Stop Dose Admin Magnesium Sulfate 2 gm in 50 mls @ 50 mls/hr 08/02/23 00:16 Magnesium Sulfate 2gm/50ml Premix IV 08/02/23 01:15 ONCE ONE Levofloxacin/Dextrose 750 mg in 150 mls @ 100 mls/hr 08/02/23 00:17 Levofloxacin 750mg/150ml Premix IV 08/02/23 01:46 ONCE ONE Discontinued Medications Generic Name Dose Route Start Last Admin Trade Name Freq PRN Reason Stop Dose Admin Albuterol/Ipratropium 9 ml 08/01/23 22:24 08/01/23 22:51 Ipratropium/Albuterol 3 Ml Neb IH 08/01/23 22:25 9 ml ONCE ONE Administration Doxycycline Hyclate 100 mg 08/01/23 22:45 08/01/23 23:01 Doxycycline Hycl 100 Mg Tablet PO 08/01/23 22:46 100 mg ONCE ONE Administration Lactated Ringer's 1,000 mls @ 999 mls/hr 08/01/23 22:44 08/01/23 22:51 Lactated Ringer's 1000 Ml Bag IV 08/01/23 23:44 999 mls/hr .Q1H1M ONE Administration Levalbuterol HCl 1.25 mg 08/01/23 23:40 08/02/23 00:04 Levalbuterol 1.25mg/3ml Neb IH 08/01/23 23:41 1.25 mg ONCE ONE Administration Methylprednisolone Sodium Succinate 125 mg 08/01/23 22:26 08/01/23 22:39 Methylprednisolone Sod Succ 125mg Vial IV 08/01/23 22:27 125 mg ONCE ONE Administration ORDERS Category Date Time Status XR chest portable Stat Exams 08/01/23 22:24 Completed Complete Blood Count Auto Diff Stat Lab 08/01/23 22:15 Completed Comprehensive Metabolic Panel Stat Lab 08/01/23 22:15 Completed NT Pro Brain Natriuretic Pep. Stat Lab 08/01/23 22:15 Completed Troponin I Q3H Lab 08/02/23 01:30 Ordered Troponin I Q3H Lab 08/02/23 04:30 Ordered Troponin I Stat Lab 08/01/23 22:15 Completed Blood Culture Stat Micro 08/01/23 23:00 Received VBG [Venous Blood Gas] Stat RT 08/01/23 22:24 Completed MDM Narrative Medical Decision Narrative: 58-year-old male history of COPD, hypertension, hypothyroidism presenting with shortness of breath. Patient states that he has been told that he does not have COPD, but for the past 3 to 4 days, he has been getting progressively short of breath. Cough productive of white sputum, this is new. No fevers or chills, but chest pressure has been getting worse since that time. All of this is worse with exertion. No lower extremity edema, nausea, diaphoresis, or any other concerns. History obtained with patient. On arrival, patient in mild respiratory distress with tachypnea, wheezing, prolonged expiratory phase and accessory muscle use. Cardiac exam within normal limits other than mild tachycardia. No focal breath sounds. Pulses are equal and symmetric, no lower extremity edema. Differential includes COPD exacerbation, pneumonia, microvascular coronary artery disease, CHF, ACS, GA, coronary artery dissection, pneumothorax, PE, dissection, aortic aneurysm, bronchitis, among others. Workup independently interpreted: Nonactionable VBG. Patient has leukocytosis 13.6, lactate elevated 2.4, likely due to increased work of breathing versus infection. Troponin negative. BNP nonactionable. EKG independently interpreted and significant for sinus tachycardia 101 beats a minute no ST or T wave changes concerning for acute ischemia. UT, QRS, QT intervals within normal limits. Chest x-ray with no obvious consolidation or airspace disease. Patient was given DuoNebs x 3, Solu-Medrol 125. Prior to reevaluation, care handed off to oncoming physician. <Geovanni Lazaro MD - Last Filed: 08/02/23 00:23> Vital Signs Vital Signs: 08/01/23 22:20 08/01/23 23:00 08/01/23 23:30 Temperature 97.8 F Temperature Source Oral Pulse Rate 99 H 103 H Pulse Rate [Left] 121 H Respiratory Rate 24 18 14 Blood Pressure 139/83 132/83 Blood Pressure [Right Arm] 172/116 H Blood Pressure Mean 102 99 Blood Pressure Mean [Right Arm] 134 02 Sat by Pulse Oximetry 88 L 94 L 93 L Oxygen Delivery Method Room Air Lab Data Labs: Lab Results 08/01/23 22:15: WBC 13.6 H, RBC 4.65, Hgb 15.4, Hct 45.3, MCV 97.4 H, MCH 33.2 H, MCHC 34.1, RDW 13.4, Plt Count 301, MPV 7.7, Neut % (Auto) 40.9, Lymph % (Auto) 18.7, [place] % (Auto) 6.6, Eos % (Auto) 31.6 H, Baso % (Auto) 2.1 H, Neut # (Auto) 5.6, Lymph # (Auto) 2.6, [place] # (Auto) 0.9, Eos # (Auto) 4.3 H, Baso # (Auto) 0.3 H, Sodium 138, Potassium 4.3, Chloride 103, Carbon Dioxide 29, Anion Gap 10.3, BUN 11, Creatinine 0.70, Estimated Creat Clear 112, Estimated GFR 115, Est GFR ( Amer) 140, Glucose 101 H, Calcium 9.5, Total Bilirubin 1.1, AST 30, ALT 31, Alkaline Phosphatase 52, Troponin I < 0.01, NT-Pro-B Natriuret Pep 252 H, Total Protein 7.5, Albumin 4.3, Globulin 3.2, Albumin/Globulin Ratio 1.3 08/01/23 22:24: VBG pH 7.42 H, VBG pCO2 38.7, VBG pO2 54.5 H, VBG HCO3 24.4, VBG Total CO2 25.6, VBG O2 Saturation 87.6 H, VBG Base Excess -0.1, VBG Lactic Acid 2.4 H Response Orders (Tests/Meds): ED MEDICATIONS Generic Name Dose Route Start Last Admin Trade Name Freq PRN Reason Stop Dose Admin Magnesium Sulfate 2 gm in 50 mls @ 50 mls/hr 08/02/23 00:16 Magnesium Sulfate 2gm/50ml Premix IV 08/02/23 01:15 ONCE ONE Levofloxacin/Dextrose 750 mg in 150 mls @ 100 mls/hr 08/02/23 00:17 Levofloxacin 750mg/150ml Premix IV 08/02/23 01:46 ONCE ONE Discontinued Medications Generic Name Dose Route Start Last Admin Trade Name Freq PRN Reason Stop Dose Admin Albuterol/Ipratropium 9 ml 08/01/23 22:24 08/01/23 22:51 Ipratropium/Albuterol 3 Ml [facility] 08/01/23 22:25 9 ml ONCE ONE Administration Doxycycline Hyclate 100 mg 08/01/23 22:45 08/01/23 23:01 Doxycycline Hycl 100 Mg Tablet PO 08/01/23 22:46 100 mg ONCE ONE Administration Lactated Ringer's 1,000 mls @ 999 mls/hr 08/01/23 22:44 08/01/23 22:51 Lactated Ringer's 1000 Ml Bag IV 08/01/23 23:44 999 mls/hr .Q1H1M ONE Administration Levalbuterol HCl 1.25 mg 08/01/23 23:40 08/02/23 00:04 Levalbuterol 1.25mg/3ml [facility] 08/01/23 23:41 1.25 mg ONCE ONE Administration Methylprednisolone Sodium Succinate 125 mg 08/01/23 22:26 08/01/23 22:39 Methylprednisolone Sod Succ 125mg Vial IV 08/01/23 22:27 125 mg ONCE ONE Administration ORDERS Category Date Time Status XR chest portable Stat Exams 08/01/23 22:24 Completed Complete Blood Count Auto Diff Stat Lab 08/01/23 22:15 Completed Comprehensive Metabolic Panel Stat Lab 08/01/23 22:15 Completed NT Pro Brain Natriuretic Pep. Stat Lab 08/01/23 22:15 Completed Troponin I Q3H Lab 08/02/23 01:30 Ordered Troponin I Q3H Lab 08/02/23 04:30 Ordered Troponin I Stat Lab 08/01/23 22:15 Completed Blood Culture Stat Micro 08/01/23 23:00 Received VBG [Venous Blood Gas] Stat RT 08/01/23 22:24 Completed Tissue Perfus/Sepsis Re-Eval Sepsis Re-Evaluation Performed: Yes Date Performed: 08/02/23 Time Performed: 00:18 MDM Narrative Medical Decision Narrative: 58-year-old male history of COPD, hypertension, hypothyroidism presenting with shortness of breath. Patient states that he has been told that he does not have COPD, but for the past 3 to 4 days, he has been getting progressively short of breath. Cough productive of white sputum, this is new. No fevers or chills, but chest pressure has been getting worse since that time. All of this is worse with exertion. No lower extremity edema, nausea, diaphoresis, or any other concerns. History obtained with patient. On arrival, patient in mild respiratory distress with tachypnea, wheezing, prolonged expiratory phase and accessory muscle use. Cardiac exam within normal limits other than mild tachycardia. No focal breath sounds. Pulses are equal and symmetric, no lower extremity edema. Differential includes COPD exacerbation, pneumonia, microvascular coronary artery disease, CHF, ACS, GA, coronary artery dissection, pneumothorax, PE, dissection, aortic aneurysm, bronchitis, among others. Workup independently interpreted: Nonactionable VBG. Patient has leukocytosis 13.6, lactate elevated 2.4, likely due to increased work of breathing versus infection. Troponin negative. BNP nonactionable. EKG independently interpreted and significant for sinus tachycardia 101 beats a minute no ST or T wave changes concerning for acute ischemia. UT, QRS, QT intervals within normal limits. Chest x-ray with no obvious consolidation or airspace disease. Patient was given DuoNebs x 3, Solu-Medrol 125. Prior to reevaluation, care handed off to oncoming physician. Tejas MONAHAN: I assumed care of the patient at the time of handoff from the prior provider. On reassessment, patient remains tachycardic, satting 87-90 on room air, tachypneic, diffusely wheezing, still feels bad from a respiratory perspective. Chest x-ray interpreted by me, no obvious pneumonia. Appears consistent with COPD. Patient was given an additional nebulizer treatment of levalbuterol. Approximately 20 mins after this, patient continues to require oxygen supplementation, continues to be diffusely wheezy and dysneic. Given this, I had to interact discussion with the hospitalist on-call for admission for hypoxia and COPD exacerbation. Patient was given IV Levaquin for antibiotic therapy. Patient agreeable to admission.
[2023-08-01 23:00] VITALS: BP 139/83; PULSE 99; RESP 18; O2SAT 94
[2023-08-01] MEDS: DOXYCYCLINE HYCL 100 MG TABLET PO (23:01)
[2023-08-01 23:30] VITALS: BP 132/83; PULSE 103; RESP 14; O2SAT 93
--- NOTE | 2023-08-01 23:34 | PC.NURSE ---
Gave pt blanket no needs at this time
[2023-08-02] VITALS: BP 122/77; PULSE 111; RESP 16; O2SAT 92
[2023-08-02] MEDS: LEVALBUTEROL 1.25MG/3ML NEB 1.25 MG IH (00:04)
--- NOTE | 2023-08-02 00:16 | PC.NURSE ---
House notified for admission
[2023-08-02] MEDS: LEVOFLOXACIN/D5W 750 MG/150 ML 750 MG/150 ML PIGGYBACK 100 MG IV (00:21)
--- NOTE | 2023-08-02 00:30 | PC.NURSE ---
Report to Argenis RN
--- NOTE | 2023-08-02 00:30 | PC.NURSE ---
0020 RECEIVED PHONE REPORT FROM FAYE RN/ED NURSE. PATIENT IS A 58 YO MALE. ADMISSION DIAGNOSIS COPD EXACERBATION. NKA. TO BE ADMITTED TO ROOM 202.
[2023-08-02 00:31] VITALS: BP 124/78; PULSE 101; RESP 20; TEMP 36.6; O2SAT 94
--- NOTE | 2023-08-02 00:38 | P.HP_ITS ---
History of Present Illness *Admission Date: 08/02/23 *Reason for visit:: COPDE *History of present illness: 58 year old male presented to [facility] ED for c/o shortness of breath since Saturday. PMHX of HTN, HLD, depression and tobacco abuse. The pt states that he has not smoked in two weeks in attempts to quit. ED workup revealed oxygen requirement of 2L, leukocytosis of 13.6, EKG that is sinus tachycardia, and chest xray demonstrating hyperinflation of the lungs indicative of COPD without acute disease. The pt reports that he was at [facility] on 07/29/23 for a carotid duplex scan that was unremarkable and echocardiogram that demonstrates LVEF is 50% and mild dilation of the RV with mild reduction. He required multiple duonebs and IV magnesium in the ED. The ED physician consulted the hospitalist team for further medical management. I admitted the pt to the medical floor. The pt still requir es oxygen and repeated duonebs. He has diffuse wheezing throughout. His blood cultures are pending. I have ordered a sputum culture, covid/flu swab, and will continue his IV steroids and antibiotics. [facility] Disclaimer: The information contained in this section may have been updated after the rashida sandovalcarlos was seen, as this information can be updated by other users. Medical History Bloating Hypothyroidism Vitamin D deficiency (~06/04/17) Surgical History History of colonoscopy Family History Other No significant family history Social History Smoking Status: Current every day smoker tobacco type: cigarettes packs per day: 1 alcohol intake: current substance use type: denies use current occupational status: employed Travel in the last 8 weeks: None household members: spouse housing: house marital status: education level: vocational service: No caffeine: Yes special lis needs: No do you feel safe at home: Yes victim of physical abuse: No victim of emotional abuse: No victim of sexual abuse: No would you like helpful sources: No Review of Systems Review of Systems Review of systems:: pertinent systems reviewed and negative unless documented below Meds Home Medications and Allergies Home Medications Medication Instructions Recorded Confirmed Type bisoprolol fumarate 5 mg tablet 5 mg PO DAILY #30 tabs 06/20/23 08/02/23 Rx cholecalciferol (vitamin D3) 1,250 1,250 mcg PO WEEKLY #5 caps 06/20/23 08/02/23 Rx mcg (50,000 unit) capsule diclofenac sodium 75 mg 75 mg PO BID #60 tabs 06/20/23 08/02/23 Rx tablet,delayed release sertraline 25 mg tablet 25 mg PO DAILY #30 tabs 06/20/23 08/02/23 Rx ezetimibe 10 mg tablet 10 mg PO DAILY #30 tabs 06/21/23 08/02/23 Rx New Prescriptions to Start Prescriptions: Allergies Allergy/AdvReac Type Severity Reaction Status Date / Time No Known Allergies Allergy Verified 07/15/23 09:41 Exam Data for Last 24 hours Vital signs and Labs for Last 24 Hours: Temp Pulse Resp BP Pulse Ox O2 Del Method O2 Flow Rate 97.8 F 101 H 20 124/78 92 L Nasal Cannula 2 08/02/23 00:31 08/02/23 00:31 08/02/23 00:31 08/02/23 00:31 08/02/23 00:00 08/02/23 00:31 08/02/23 00:31 Laboratory Results - last 24 hr 08/01/23 22:15: WBC 13.6 H, RBC 4.65, Hgb 15.4, Hct 45.3, MCV 97.4 H, MCH 33.2 H , MCHC 34.1, RDW 13.4, Plt Count 301, MPV 7.7, Neut % (Auto) 40.9, Lymph % (Auto) 18.7, [place] % (Auto) 6.6, Eos % (Auto) 31.6 H, Baso % (Auto) 2.1 H, Neut # (Auto) 5.6, Lymph # (Auto) 2.6, [place] # (Auto) 0.9, Eos # (Auto) 4.3 H, Baso # (Auto) 0.3 H, Sodium 138, Potassium 4.3, Chloride 103, Carbon Dioxide 29, Anion Gap 10.3, BUN 11, Creatinine 0.70, Estimated Creat Clear 112, Estimated GFR 115, Est GFR ( Amer) 140, Glucose 101 H, Calcium 9.5, Total Bilirubin 1.1, AST 30, ALT 31, Alkaline Phosphatase 52, Troponin I < 0.01, NT-Pro-B Natriuret Pep 252 H, Total Protein 7.5, Albumin 4.3, Globulin 3.2, Albumin/Globulin Ratio 1.3 08/01/23 22:24: VBG pH 7.42 H, VBG pCO2 38.7, VBG pO2 54.5 H, VBG HCO3 24.4, VBG Total CO2 25.6, VBG O2 Saturation 87.6 H, VBG Base Excess -0.1, VBG Lactic Acid 2.4 H I & O for Last 24 hours: Intake & Output 07/30/23 07/31/23 08/01/23 08/02/23 23:59 23:59 23:59 23:59 Weight 69.4 kg Constitutional Constitutional: thin and chronically ill appearing *Routine HEENT Exam Head: Present normocephalic and atraumatic Eye: Present EOMI and PERRL ENT: Present mucous membranes moist *Routine Neck Exam Neck: Present supple and full ROM *Routine Respiratory Exam Respiratory: Present wheezes and able to speak in complete sentences *Routine Cardiovascular Exam Cardiovascular: Present tachycardia *Routine Abdominal Exam Abdominal: Present soft and normoactive bowel sounds; Absent tenderness *Routine Rectal Exam Rectal:: deferred *Routine Genitalia Exam Genitalia:: deferred *Routine Extremities Exam Extremities: Present full ROM; Absent edema *Routine Skin Exam Skin: Present intact and warm *Routine Neurological Exam Neurological: Present alert and oriented X3 Assessment and Plan *Assessment and plan (1) SIRS (systemic inflammatory response syndrome): Status: Acute Category: Medical Code(s): R65.10 - Systemic inflammatory response syndrome (SIRS) of non-infectious origin without acute organ dysfunction (2) Acute exacerbation of chronic obstructive pulmonary disease: Status: Acute Category: Medical Code(s): J44.1 - Chronic obstructive pulmonary disease with (acute) exacerbation (3) Acute respiratory failure with hypoxia: Status: Acute Category: Medical Code(s): J96.01 - Acute respiratory failure with hypoxia (4) HTN (hypertension): Status: Acute Category: Medical Code(s): I10 - Essential (primary) hypertension (5) HLD (hyperlipidemia): Status: Acute Category: Medical Code(s): E78.5 - Hyperlipidemia, unspecified (6) PTSD (post-traumatic stress disorder): Status: Acute Category: Medical Code(s): F43.10 - Post-traumatic stress disorder, unspecified Plan 58 year old male presented to [facility] ED for c/o shortness of breath since Saturday. PMHX of HTN, HLD, depression and tobacco abuse. The pt states that he has not smoked in two weeks in attempts to quit. ED workup revealed oxygen requirement of 2L, leukocytosis of 13.6, EKG that is sinus tachycardia, and chest xray demonstrating hyperinflation of the lungs indicative of COPD without acute disease. The pt reports that he was at [facility] on 07/29/23 for a carotid duplex scan that was unremarkable and echocardiogram that demonstrates LVEF is 50% and mild dilation of the RV with mild reduction. He required multiple duonebs and IV magnesium in the ED. The ED physician consulted the hospitalist team for further medical management. I admitted the pt to the medical floor. Plan as to follow: SIRS COPDE ACUTE RESP FAILURE W/ HYPOXIA -leukocytosis of 13.6, HR 121, and RR 20 -pO2 54.4. Currently on 2L NC. please maintain 02 above 90% -lactate 3.2. Continue to trend -continue Levofloxacin 750mg IV daily and solumedrol 60 mg IV BID -blood cultures and sputum cultures pending -Dounebs q 6hr PRN HTN -continue Zebeta 5mg daily HLD -continue Zetia 10mg daily PTSD -continue sertraline 25mg daily FULL CODE REGULAR DIET HEPARIN SQ
--- NOTE | 2023-08-02 00:46 | PC.NURSE ---
0045 PATIENT ARRIVED VIA STRETCHER AND ADMITTED TO ROOM 202.
[2023-08-02 00:53] VITALS: BP 127/75; PULSE 114; RESP 16; TEMP 36.9; O2SAT 92; BMI 19.7
[2023-08-02] MEDS: MAGNESIUM SULFATE IN WATER 2 GM/50 ML PIGGYBACK IV (01:21)
[2023-08-02 01:37] LABS: Reflex Lactic Add Lactic Reflex
[2023-08-02 02:10] LABS: Lactic Acid Follow Up (RFLX 1) 3.2 mmol/L (0.7-2.1); Troponin I < 0.01 ng/ml (0.00-0.034)
[2023-08-02 02:15] LABS: Coronavirus 19, PCR Not Detected (NotDetected); Influenza A, PCR Not Detected (NotDetected); Influenza B, PCR Not Detected (NotDetected)
--- NOTE | 2023-08-02 02:25 | PC.NURSE ---
BEVERLY BELTRAN NOTIFIED OG 3.2 LACTATE. NO NEW ORDERS AT THIS TIME.
[2023-08-02 03:37] LABS: Reflex Lactic (2 hrs) Add Lactic Reflex
--- NOTE | 2023-08-02 03:48 | PC.NURSE ---
PATIENT RESTING QUIETLY IN BED WITH HOB ELEVATED 40 DEGREES. 02 AT 2LNC. NO C/O PAIN. REPORTS GETS VERY SOA WITH ACTIVITY.
[2023-08-02 04:00] VITALS: BP 112/74; PULSE 109; RESP 16; TEMP 37.1; O2SAT 95; BMI 19.7
[2023-08-02 04:43] LABS: Basophils # 0.1 K/mm3 (0-0.2); Basophils % 0.8 % (0.1-2.0); Eosinophils # 0.1 K/mm3 (0.0-0.4); Lymphocytes # 0.8 K/mm3 (0.7-4.5); Mean Corpuscular HGB Conc 33.4 g/dL (31.8-35.4); Mean Corpuscular Hemoglobin 33.1 pg (27.0-31.2); Mean Corpuscular Volume 99.1 fl (80-94); Monocytes # 0.1 K/mm3 (0.1-1.0); Monocytes % 1.5 % (1.7-9.3); Neutrophils # 8.3 K/mm3 (1.8-7.8); Neutrophils % 88.7 % (37.0-80.0); Platelet Count 291 K/mm3 (142-424); Red Blood Count 4.24 M/mm3 (4.60-6.20); Red Cell Distribution Width 13.5 % (11.5-17.5); White Blood Count 9.3 K/mm3 (4.8-10.8)
[2023-08-02 04:55] LABS: MANUAL DIFFERENTIAL MANUAL DIFFERENTIAL (MANUAL DIFF)
[2023-08-02 04:56] LABS: Lactic Acid Follow up (RFLX 2) 4.1 mmol/L (0.7-2.1)
--- NOTE | 2023-08-02 04:59 | PC.NURSE ---
CRITICAL LACTIC 4.1 REPORTED TO BEVERLY BELTRAN NEW ORDER RECEIVED FOR LR 1 LITER AT 250 ML/HR X1 BAG.
[2023-08-02 05:01] LABS: Chloride 105 mmol/L (98-107); Potassium 4.3 mmoL/L (3.5-5.1); Sodium 137 mmol/L (136-145)
[2023-08-02 05:04] LABS: Anion Gap 15.3 mEq/L (5-15); Blood Urea Nitrogen 11 mg/dl (9-20); Carbon Dioxide 21 mmol/L (22.0-30.0); Creatinine Clearance Estimated 106 mL/min (50-200); Estimated Glomerular Filt Rate 115 ml/min (>60); GFR (African American) 140 ML/MIN (>60); Glucose 163 mg/dl (74-100)
[2023-08-02 05:10] LABS: Lymphocytes % 5 % (10-50); Neutrophils % 94 % (42-76); Platelet Estimate Normal; RBC Morphology Normal; Total Cells Counted 100; Troponin I < 0.01 ng/ml (0.00-0.034)
[2023-08-02] MEDS: LACTATED RINGERS 1000ML 500 ML 250 ML IV (05:13)
[2023-08-02 07:29] VITALS: BP 138/76; PULSE 107; RESP 24; TEMP 36.5; O2SAT 96
--- NOTE | 2023-08-02 07:42 | HMH.PHAINT1 ---
Pharmacy Intervention Comments: VERIFIED HOME MEDICATION LIST USING LIST FROM OFFICE AND OUTPATIENT PHARMACY
[2023-08-02] MEDS: SERTRALINE 50MG TABLET 25 MG PO (08:01)
[2023-08-02] MEDS: HEPARIN SODIUM 5,000 UNIT/ML VIAL 5000 UNIT SQ (08:01)
[2023-08-02] MEDS: EZETIMIBE 10MG TABLET 10 MG PO (08:01)
[2023-08-02] MEDS: BISOPROLOL 5MG TABLET 5 MG PO (08:01)
--- NOTE | 2023-08-02 08:51 | PC.NURSE ---
Oxygen saturation 96% on room air at rest.
[2023-08-02 11:38] VITALS: BP 122/73; PULSE 84; RESP 22; TEMP 36.7; O2SAT 97
--- NOTE | 2023-08-02 12:23 | EXP.DC.SUM ---
General Admission date:: 08/02/23 Discharge date: 08/02/23 HPI HPI HPI: 58 year old male presented to [facility] ED for c/o shortness of breath since Saturday. PMHX of HTN, HLD, depression and tobacco abuse. The pt states that he has not smoked in two weeks in attempts to quit. ED workup revealed oxygen requirement of 2L, leukocytosis of 13.6, EKG that is sinus tachycardia, and chest xray demonstrating hyperinflation of the lungs indicative of COPD without acute disease. The pt reports that he was at [facility] on 07/29/23 for a carotid duplex scan that was unremarkable and echocardiogram that demonstrates LVEF is 50% and mild dilation of the RV with mild reduction. He required multiple duonebs and IV magnesium in the ED. The ED physician consulted the hospitalist team for further medical management. I admitted the pt to the medical floor. The pt still requires oxygen and repeated duonebs. He has diffuse wheezing throughout. His blood cultures are pending. I have ordered a sputum culture, covid/flu swab, and will continue his IV steroids and antibiotics. Hospital Course Hospital Course Hospital Course: 58 year old male presented to [facility] ED for c/o shortness of breath since Saturday. PMHX of HTN, HLD, depression and tobacco abuse. The pt states that he has not smoked in two weeks in attempts to quit. ED workup revealed oxygen requirement of 2L, leukocytosis of 13.6, EKG that is sinus tachycardia, and chest xray demonstrating hyperinflation of the lungs indicative of COPD without acute disease. The pt reports that he was at [facility] on 07/29/23 for a carotid duplex scan that was unremarkable and echocardiogram that demonstrates LVEF is 50% and mild dilation of the RV with mild reduction. He required multiple duonebs and IV magnesium in the ED. The ED physician consulted the hospitalist team for further medical management. I admitted the pt to the medical floor. Plan as to follow: SIRS COPDE ACUTE RESP FAILURE W/ HYPOXIA - improved -blood cultures and sputum cultures pending -Dounebs q 6hr PRN at DC DC on levofloxacin, prednisone, and Duonebs, nebulizer and custodial spiriva HTN -continue Zebeta 5mg daily HLD -continue Zetia 10mg daily PTSD -continue sertraline 25mg daily Exam Data for Last 24 hours Vital signs and Labs for Last 24 Hours: Temp Pulse Resp BP Pulse Ox O2 Del Method O2 Flow Rate 98.0 F 84 22 122/73 97 Room Air 2 08/02/23 11:38 08/02/23 11:38 08/02/23 11:38 08/02/23 11:38 08/02/23 11:38 08/02/23 11:38 08/02/23 07:29 Laboratory Results - last 24 hr 08/01/23 00:00: SARS-CoV-2 (PCR) Not detected, Influenza A Untype (PCR) Not detected, Influenza Type B (PCR) Not detected 08/01/23 22:15: WBC 13.6 H, RBC 4.65, Hgb 15.4, Hct 45.3, MCV 97.4 H, MCH 33.2 H, MCHC 34.1, RDW 13.4, Plt Count 301, MPV 7.7, Neut % (Auto) 40.9, Lymph % (Auto) 18.7, [place] % (Auto) 6.6, Eos % (Auto) 31.6 H, Baso % (Auto) 2.1 H, Neut # (Auto) 5.6, Lymph # (Auto) 2.6, [place] # (Auto) 0.9, Eos # (Auto) 4.3 H, Baso # (Auto) 0.3 H, Sodium 138, Potassium 4.3, Chloride 103, Carbon Dioxide 29, Anion Gap 10.3, BUN 11, Creatinine 0.70, Estimated Creat Clear 112, Estimated GFR 115, Est GFR ( Amer) 140, Glucose 101 H, Calcium 9.5, Total Bilirubin 1.1, AST 30, ALT 31, Alkaline Phosphatase 52, Troponin I < 0.01, NT-Pro-B Natriuret Pep 252 H, Total Protein 7.5, Albumin 4.3, Globulin 3.2, Albumin/Globulin Ratio 1.3 08/01/23 22:24: VBG pH 7.42 H, VBG pCO2 38.7, VBG pO2 54.5 H, VBG HCO3 24.4, VBG Total CO2 25.6, VBG O2 Saturation 87.6 H, VBG Base Excess -0.1, VBG Lactic Acid 2.4 H 08/02/23 01:32: Lactate 3.2 H, Troponin I < 0.01 08/02/23 04:30: WBC 9.3 D, RBC 4.24 L, Hgb 14.0 L, Hct 42.0, MCV 99.1 H, MCH 33.1 H, MCHC 33.4, RDW 13.5, Plt Count 291, MPV 8.0, Neut % (Auto) 88.7 H, Lymph % (Auto) 8.0 L, [place] % (Auto) 1.5 L, Eos % (Auto) 1.0, Baso % (Auto) 0.8, Neut # (Auto) 8.3 H, Lymph # (Auto) 0.8, [place] # (Auto) 0.1, Eos # (Auto) 0.1, Baso # (Auto) 0.1, Total Counted 100, Neutrophils % (Manual) 94 H, Lymphocytes % (Manual) 5 L, Atypical Lymphs % 1.0, Platelet Estimate Normal, RBC Morphology Normal, Sodium 137, Potassium 4.3, Chloride 105, Carbon Dioxide 21 L, Anion Gap 15.3 H, BUN 11, Creatinine 0.70, Estimated Creat Clear 106, Estimated GFR 115, Est GFR ( Amer) 140, Glucose 163 H D, Lactate 4.1 H, Calcium 9.0, Troponin I < 0.01 I & O for Last 24 hours: Intake & Output 07/30/23 07/31/23 08/01/23 08/02/23 23:59 23:59 23:59 23:59 Intake Total 862 / 862 Output Total 0 / 0 Balance 862 / 862 Weight 69.4 kg 66.13 kg Constitutional Constitutional: no acute distress *Routine HEENT Exam Head: Present normocephalic Eye: Present EOMI and PERRL ENT: Present mucous membranes moist *Routine Neck Exam Neck: Present supple; Absent lymphadenopathy *Routine Respiratory Exam Respiratory: Present CTA bilaterally *Routine Cardiovascular Exam Cardiovascular: Present RRR *Routine Abdominal Exam Abdominal: Present soft and normoactive bowel sounds; Absent tenderness *Routine Extremities Exam Extremities: Absent cyanosis, clubbing or edema *Routine Skin Exam Skin: Present warm; Absent rash *Routine Neurological Exam Neurological: Present alert and oriented X3 Results Data Completed and Pending Labs on day of discharge: Labs from last 24 hours 08/02/23 08/02/23 08/01/23 04:30 01:32 22:24 WBC 9.3 D RBC 4.24 L Hgb 14.0 L Hct 42.0 MCV 99.1 H MCH 33.1 H MCHC 33.4 RDW 13.5 Plt Count 291 MPV 8.0 Neut % (Auto) 88.7 H Lymph % (Auto) 8.0 L [place] % (Auto) 1.5 L Eos % (Auto) 1.0 Baso % (Auto) 0.8 Neut # (Auto) 8.3 H Lymph # (Auto) 0.8 [place] # (Auto) 0.1 Eos # (Auto) 0.1 Baso # (Auto) 0.1 Total Counted 100 Neutrophils % (Manual) 94 H Lymphocytes % (Manual) 5 L Atypical Lymphs % 1.0 Platelet Estimate Normal RBC Morphology Normal VBG pH 7.42 H VBG pCO2 38.7 VBG pO2 54.5 H VBG HCO3 24.4 VBG Total CO2 25.6 VBG O2 Saturation 87.6 H VBG Base Excess -0.1 VBG Lactic Acid 2.4 H Sodium 137 Potassium 4.3 Chloride 105 Carbon Dioxide 21 L Anion Gap 15.3 H BUN 11 Creatinine 0.70 Estimated Creat Clear 106 Estimated GFR 115 Est GFR ( Amer) 140 Glucose 163 H D Lactate 4.1 H 3.2 H Calcium 9.0 Total Bilirubin AST ALT Alkaline Phosphatase Troponin I < 0.01 < 0.01 NT-Pro-B Natriuret Pep Total Protein Albumin Globulin Albumin/Globulin Ratio SARS-CoV-2 (PCR) Influenza A Untype (PCR) Influenza Type B (PCR) 08/01/23 08/01/23 22:15 00:00 WBC 13.6 H RBC 4.65 Hgb 15.4 Hct 45.3 MCV 97.4 H MCH 33.2 H MCHC 34.1 RDW 13.4 Plt Count 301 MPV 7.7 Neut % (Auto) 40.9 Lymph % (Auto) 18.7 [place] % (Auto) 6.6 Eos % (Auto) 31.6 H Baso % (Auto) 2.1 H Neut # (Auto) 5.6 Lymph # (Auto) 2.6 [place] # (Auto) 0.9 Eos # (Auto) 4.3 H Baso # (Auto) 0.3 H Total Counted Neutrophils % (Manual) Lymphocytes % (Manual) Atypical Lymphs % Platelet Estimate RBC Morphology VBG pH VBG pCO2 VBG pO2 VBG HCO3 VBG Total CO2 VBG O2 Saturation VBG Base Excess VBG Lactic Acid Sodium 138 Potassium 4.3 Chloride 103 Carbon Dioxide 29 Anion Gap 10.3 BUN 11 Creatinine 0.70 Estimated Creat Clear 112 Estimated GFR 115 Est GFR ( Amer) 140 Glucose 101 H Lactate Calcium 9.5 Total Bilirubin 1.1 AST 30 ALT 31 Alkaline Phosphatase 52 Troponin I < 0.01 NT-Pro-B Natriuret Pep 252 H Total Protein 7.5 Albumin 4.3 Globulin 3.2 Albumin/Globulin Ratio 1.3 SARS-CoV-2 (PCR) Not detected Influenza A Untype (PCR) Not detected Influenza Type B (PCR) Not detected DS: Diagnosis Discharge Diagnosis (1) SIRS (systemic inflammatory response syndrome): Status: Acute Code(s): R65.10 - Systemic inflammatory response syndrome (SIRS) of non-infectious origin without acute organ dysfunction (2) Acute exacerbation of chronic obstructive pulmonary disease: Status: Acute Code(s): J44.1 - Chronic obstructive pulmonary disease with (acute) exacerbation (3) Acute respiratory failure with hypoxia: Status: Acute Code(s): J96.01 - Acute respiratory failure with hypoxia (4) HTN (hypertension): Status: Acute Code(s): I10 - Essential (primary) hypertension (5) HLD (hyperlipidemia): Status: Acute Code(s): E78.5 - Hyperlipidemia, unspecified (6) PTSD (post-traumatic stress disorder): Status: Acute Code(s): F43.10 - Post-traumatic stress disorder, unspecified Meds Home Medications and Allergies Home Medications Medication Instructions Recorded Confirmed Type bisoprolol fumarate 5 mg tablet 5 mg PO DAILY #30 tabs 06/20/23 08/02/23 Rx cholecalciferol (vitamin D3) 1,250 1,250 mcg PO WEEKLY #5 caps 06/20/23 08/02/23 Rx mcg (50,000 unit) capsule diclofenac sodium 75 mg 75 mg PO BID #60 tabs 06/20/23 08/02/23 Rx tablet,delayed release sertraline 25 mg tablet 25 mg PO DAILY #30 tabs 06/20/23 08/02/23 Rx ezetimibe 10 mg tablet 10 mg PO DAILY #30 tabs 06/21/23 08/02/23 Rx ipratropium 0.5 mg-albuterol 3 mg 3 ml inhalation Q8H PRN wheezing 08/02/23 Rx (2.5 mg base)/3 mL nebulization 30 days #90 mL soln levofloxacin 750 mg tablet 750 mg PO Q24H 5 days #5 tabs 08/02/23 Rx prednisone 50 mg tablet 50 mg PO DAILY 5 days #5 tabs 08/02/23 Rx New Prescriptions to Start Prescriptions: ipratropium-albuterol Khang Knox levofloxacin Khang Knox prednisone Khang Knox Allergies Allergy/AdvReac Type Severity Reaction Status Date / Time No Known Allergies Allergy Verified 07/15/23 09:41 Discharge Plan Disposition Patient Disposition: Home, Self-Care Condition: Good Follow up Plan Follow up with: Becki Umanzor APRN [Other] - 08/16/23 9:00 am Trey Johnston MD [Physician] - 08/14/23 1:00 pm Prescriptions/Medication Reconciliation: New levofloxacin 750 mg tablet 750 mg PO Q24H 5 Days Qty: 5 0RF prednisone 50 mg tablet 50 mg PO DAILY 5 Days Qty: 5 0RF ipratropium-albuterol 0.5 mg-3 mg(2.5 mg base)/3 mL solution for nebulization 3 ml inhalation Q8H PRN (Reason: wheezing) 30 Days Qty: 90 0RF Continued diclofenac sodium 75 mg tablet,delayed release (DR/EC) 75 mg PO BID Qty: 60 0RF cholecalciferol (vitamin D3) 1,250 mcg (50,000 unit) capsule 1,250 mcg PO WEEKLY Qty: 5 0RF sertraline 25 mg tablet 25 mg PO DAILY Qty: 30 2RF bisoprolol fumarate 5 mg tablet 5 mg PO DAILY Qty: 30 3RF ezetimibe 10 mg tablet 10 mg PO DAILY Qty: 30 2RF Problem Reconciliation Problems Reviewed?: Yes Patient Discharge Instructions ACTIVITY: Ambulate as tolerated DIET: continue same diet Patient Instructions: Chronic Obstructive Pulmonary Disease, DI for Chronic Obstructive Pulmonary Disease, COPD: When to Call for Help Providers Primary Care Provider: Becki Umanzor Admit Provider: Khang Knox Attending Provider: Khang Knox
[2023-08-02] MEDS: METHYLPREDNISOLONE SOD SUCC 125MG VIAL 60 MG IV (12:57)
--- NOTE | 2023-08-02 13:22 | CARE MANAGER ---
Patient required a nebulizer machine at discharge. Verbally accepted [employer] as DME company. Order/clinical faxed and machine delivered to room prior to discharge.
--- NOTE | 2023-08-06 14:03 | CARE MANAGER ---
Contacted patient related to hospital discharge. He is feeling weak and tired, but is better. They have called PCP office and they are scheduling patient with cardiology and scheduling an appointment with pulmonology in [place] instead of here per patient's request. They deny questions or concerns at this time. LALA Arroyo
--- NOTE | 2023-08-07 04:15 | PC.NURSE ---
no growth noted on prelim blood cx. assigned to dr pagan pending final results.
== END 2023-08-02 14:50 | disposition home or self-care (01) ==
LOC: ER 22:52 → 2ND 08-02 00:24
PROVIDERS: Nurse Practitioner Critical Care Medicine; Admitting Provider Internal Medicine; Emergency Provider Emergency Medicine; PCP Family Medicine; Visit Provider Internal Medicine
DX: J44.1 Chronic obstructive pulmonary disease with (acute) exacerbation (principal); I10 Essential (primary) hypertension; E78.5 Hyperlipidemia, unspecified; J96.01 Acute respiratory failure with hypoxia; R06.02 Shortness of breath; F17.210 Nicotine dependence, cigarettes, uncomplicated; Z79.899 Other long term (current) drug therapy; E55.9 Vitamin D deficiency, unspecified; F43.10 Post-traumatic stress disorder, unspecified
CPT/HCPCS: 36415; 71045; 80048; 80053; 82803; 83605; 83880; 84484; 85007; 85025; 87040; 87070; 87205; 87636; 93005; 99285; G0378; J1956; J3475

== ENCOUNTER 2023-08-14 11:21 | Outpatient (CLI) | payer BC, SELFPAY ==
[2023-08-14 11:46] LABS: Blood Urea Nitrogen 9 mg/dl (9-20); Calcium 9.3 mg/dl (8.4-10.2); Carbon Dioxide 34 mmol/L (22.0-30.0); Chloride 97 mmol/L (98-107); Estimated Glomerular Filt Rate 115 ml/min (>60); GFR (African American) 140 ML/MIN (>60); Glucose 88 mg/dl (74-100); Sodium 136 mmol/L (136-145)
[2023-08-14 11:50] LABS: D-Dimer 0.49 ug/mL (0.0-0.5)
[2023-08-14 11:57] LABS: Basophils # 0.2 K/mm3 (0-0.2); Basophils % 1.5 % (0.1-2.0); Eosinophils # 1.6 K/mm3 (0.0-0.4); Eosinophils % 14.7 % (0.1-12.0); Hematocrit 43.3 % (42.0-52.0); Hemoglobin 14.3 g/dL (14.1-18.0); Lymphocytes # 2.1 K/mm3 (0.7-4.5); Lymphocytes % 19.1 % (10-50); Mean Corpuscular Hemoglobin 32.9 pg (27.0-31.2); Mean Corpuscular Volume 99.6 fl (80-94); Mean Platelet Volume 7.5 fl (7.4-10.4); Monocytes # 0.8 K/mm3 (0.1-1.0); Monocytes % 7.7 % (1.7-9.3); Neutrophils # 6.2 K/mm3 (1.8-7.8); Neutrophils % 57.1 % (37.0-80.0); Platelet Count 256 K/mm3 (142-424); Red Blood Count 4.34 M/mm3 (4.60-6.20); Red Cell Distribution Width 13.5 % (11.5-17.5); White Blood Count 10.8 K/mm3 (4.8-10.8)
== END 2023-08-14 23:59 | disposition home or self-care (01) ==
LOC: LAB 11:21
PROVIDERS: PCP Family Medicine; Visit Provider Nurse Practitioner
DX: R93.1 Abnormal findings on diagnostic imaging of heart and coronary circulation (principal); R53.83 Other fatigue; R94.31 Abnormal electrocardiogram [ECG] [EKG]; R06.00 Dyspnea, unspecified; R07.9 Chest pain, unspecified; R42 Dizziness and giddiness
CPT/HCPCS: 36415; 80048; 85025; 85378

== ENCOUNTER 2023-08-27 06:28 | Outpatient (CLI) | payer BC, SELFPAY ==
--- NOTE | 2023-08-27 | CA_ITS ---
APPROVED REPORT Exam: Pharmacologic Technologist: Ara Benites, Ht: 6 ft 0 in Wt: 153 lbs BSA: 1.90 m2 HR: 75 bpm BP: 140/83 mmHg Rhythm: NSR Medical History Medications: Duoneb,,,,, Vit D3,,,,, BisOPROLOL Fumarate,,,,, Meclizine,,,,, Sertraline,,,,, AmOXICILLIN,,,,, Diclofenac Sodium,,,,, Cardiac Risk Factors: HTN, Hyperlipidemia, Smoking Stress Test Details Test: Brianda HR Resting HR: 93 bpm Max Heart Rate (APMHR): 161 bpm Max HR Achieved: 161 bpm Target HR (85% APMHR): 137 bpm % of APMHR: 100 Recovery HR: 126 bpm HR response to stress: Normal HR response to stress BP Resting BP: 120.0/81 mmHg Max BP: 182/103 mmHg Recovery BP: 182.0/103.0 mmHg BP response to stress: Normal blood pressure response to stress. ECG Resting ECG: NSR Stress ECmm upsloping ST depression Arrhythmia: PVCs Recovery ECG: Return to baseline within 3 minutes of recovery Recovery Arrhythmia: PVCs Clinical Exercise duration: 08:27 min Highest Stage Achieved: Exercise capacity: 10.1 METs Overall Exercise Capacity for Age: Average Stress ECG Conclusion The patient was able to exercise for a total of 8 minutes, 27 seconds. He achieved a total of 10.1 METS. He has average exercise capacity compared to age and sex matched peers. He has normal HR and BP response to exercise. During brianda pt experinced chest tightness and dyspnea. PVC noted. 1mm ST depression. Conclusion: Average exercise capacity. Equivocal ECG changes at peak stress. Myoview images reported separately. Test Summary REST . . . . . . . Sitting REST . . . . . . . Standing REST 14:16 0.0 0.0 93 . 120/ 81 . . Stage 1 01:00 10.0 1.7 98 . . . . Stage 1 02:00 10.0 1.7 103 . . . . Stage 1 03:00 10.0 1.7 107 . 141/ 90 . . Stage 2 01:00 12.0 2.5 113 . . . . Stage 2 02:00 12.0 2.5 119 . . . . Stage 2 03:00 12.0 2.5 126 . 152/ 91 . . Stage 3 01:00 14.0 3.4 137 . . . . Stage 3 02:00 14.0 3.4 144 . . . . Stage 3 02:27 14.0 3.4 . . . . Stop exercise at 08:27 RECOVERY 01:00 0.0 0.0 126 . . . . RECOVERY 02:00 0.0 0.0 108 . 182/103 . . RECOVERY 03:00 0.0 0.0 100 . 173/ 84 . . RECOVERY 04:00 0.0 0.0 101 . 148/ 85 . . RECOVERY 05:00 0.0 0.0 97 . 141/ 83 . . RECOVERY 06:00 0.0 0.0 100 . 141/ 83 . . RECOVERY 07:00 0.0 0.0 100 . 137/ 84 . . RECOVERY 07:33 0.0 0.0 0 . 137/ 84 . . Electronically signed by : Joi Soto MD 08/29/2023 14:18:55
--- NOTE | 2023-08-27 06:30 | CA_ITS ---
APPROVED REPORT EXAM: Comprehensive 2D, Doppler, and color-flow Echocardiogram Car Repair Supervisor: Camille Iraheta CRT Ht: 6 ft 0 in Wt: 153lbs BSA: 1.90 BP: 138/85 mmHg Indications: Abnormal ECG, Chest Pain, Shortness of Breath, Hyperlipidemia, Hypertension/HDD, smoker, limited images due to lung interference. 2D Dimensions LA Volume 10.90 mL LA Volume Index 5.74 mL/m2 (M/F) 16-34 M-Mode Dimensions RVDd 2.00 cm (0.9-2.6) LA Diam 2.31 cm (1.9-4.0) LVDd 4.18 cm (3.5-5.7) LVDs 3.04 cm (3.5-5.7) IVSd 0.98 cm (0.6-1.1) PWd 0.71 cm (0.6-1.1) EF (Teich) 53.40% FS 27.30% EDV (Teich) 77.70 mL TAPSE 2.15 (<1.7) ESV (Teich) 36.20 mL LV Diastology E Decel Time 150 (160-240 msec) E/A Ratio 0.7 MED A' 9.40 cm/s LAT A' 6.20 cm/s Aortic Valve AO Peak GR. 4.20 mmHg Mitral Valve MV E Max Alf. 47.0 (40-130 cm/s) MV A Velocity 71.0 (40-130 cm/s) E/A Ratio 0.66 MV PHT 44.0 ms Pulmonary Valve PV Peak Velocity 90.0 (50-150 cm/s) Tricuspid Valve TR P. Velocity 195.00 cm/s RAP Estimate 10.00 mmHg RVSP 25.20 mmHg Left Ventricle The left ventricle is normal size. The left ventricular systolic function is normal. The left ventricular ejection fraction is within the normal range. There is normal left ventricular wall thickness. There is normal LV segmental wall motion. The left ventricular diastolic function is normal. LVEF is 55%. Right Ventricle The right ventricle is normal size. The right ventricular systolic function is normal. Atria The left atrium size is normal. The right atrium size is normal. There is no Doppler evidence of interatrial shunt. Aortic Valve The aortic valve opens well. The aortic valve is trileaflet. There is no aortic valvular stenosis. Trace aortic regurgitation is present. Mitral Valve The mitral valve is normal in structure. No evidence of mitral valve stenosis. There is no mitral valve regurgitation noted. Tricuspid Valve The tricuspid valve leaflets are thin and pliable. Trace tricuspid regurgitation. There is insufficeint TR jet to estimate RVSP. Pulmonic Valve The pulmonary valve is normal in structure. Trace pulmonic regurgitation. Great Vessels The aortic root is normal in size. The ascending aorta is not well visualized. IVC is normal in size and collapses >50% with inspiration. Pericardium There is no pericardial effusion. Other Information Study Quality: Fair Conclusion Normal biventricular systolic function. No significant valvular stenosis or regurgitation. Electronically signed by : Joi Soto MD 09/01/2023 15:22:36
--- NOTE | 2023-08-27 06:32 | NM_ITS ---
APPROVED REPORT Exam: Nuclear Stress Test Indication: Chest pain, Abnormal EKG, SOB, HTN, High cholesterol, Tobacco use Patient Location: Outpatient Stress Tech: Ara MARQUES Tech:Belen Barragan, ARRT, RT (R)(N) Ht: 6 ft 0 in Wt: 155 lbs HR: 93 bpm BP: 120/81 mmHg BSA: 1.91 m2 Rhythm: NSR TID: 0.94 History: Chest pain, Abnormal EKG, SOB, HTN, High cholesterol, Tobacco use Procedure: Patient exercised on Alberto protocol 8:27 minutes and sec, resting heart rate 93 bpm, resting blood pressure 120/81 mmHg, with exercise maximum heart rate achived was 161 bpm which is 100 % of the maximum predicted heart rate and blood pressure was 182/103 mmHg. Test was stopped due to SOB. Patient denied any complaint of chest pain. Patient has average exercise capacity, achieved 10.1 METs of workload on treadmill, the blood pressure response to exercise was normal. Cardiac Stress and Resting SPECT Images: Cardiac Stress and Resting SPECT images were obtained using technetium 99m Myoview 29.8 mCi stress and 10.47 mCi at rest. Resting and stress imaging in supine and prone positions demonstrate a small sized, moderate, fixed perfusion defect in the mid to distal inferior LV wall. Gated imaging demonstrates normal global and regional LV systolic function. LVEF is calculated at 62%. Conclusion: Small sized, moderate, fixed perfusion defect in the mid to distal inferior LV wall. No evidence of reversible ischemia. Gated imaging demonstrates normal global and regional LV systolic function. LVEF is calculated at 62%. Electronically signed by : Joi Soto MD 08/29/2023 14:21:02
[2023-08-27] MEDS: SODIUM CHLORIDE 0.9% 10ML SYR (RAD ONLY) 10 ML IV ×2 (08:34)
[2023-08-27] MEDS: ISOTOPE MYOVIEW (PER STUDY) 1 DOSE IV (08:34)
== END 2023-08-27 23:59 | disposition home or self-care (01) ==
LOC: RAD 06:30
PROVIDERS: PCP Family Medicine; Visit Provider Nurse Practitioner
DX: R06.00 Dyspnea, unspecified (principal); R07.9 Chest pain, unspecified; R94.31 Abnormal electrocardiogram [ECG] [EKG]
CPT/HCPCS: 78452; 93017; 93018; 93306; A9502

== ENCOUNTER 2023-09-09 09:49 | Outpatient (CLI) | payer BC, SELFPAY ==
[2023-09-09 19:44] LABS: Basophils # 0.1 K/mm3 (0-0.2); Basophils % 0.6 % (0.1-2.0); Eosinophils # 0.4 K/mm3 (0.0-0.4); Eosinophils % 4.1 % (0.1-12.0); Hematocrit 38.5 % (42.0-52.0); Hemoglobin 13.5 g/dL (14.1-18.0); Lymphocytes # 1.1 K/mm3 (0.7-4.5); Lymphocytes % 12.7 % (10-50); Mean Corpuscular HGB Conc 35.2 g/dL (31.8-35.4); Mean Corpuscular Hemoglobin 33.8 pg (27.0-31.2); Mean Corpuscular Volume 96.2 fl (80-94); Mean Platelet Volume 11.1 fl (7.4-10.4); Monocytes # 0.7 K/mm3 (0.1-1.0); Monocytes % 7.7 % (1.7-9.3); Neutrophils # 6.4 K/mm3 (1.8-7.8); Neutrophils % 74.9 % (37.0-80.0); Platelet Count 112 K/mm3 (142-424); Red Cell Distribution Width 14.2 % (11.5-17.5); White Blood Count 8.5 K/mm3 (4.8-10.8)
[2023-09-09 19:45] LABS: Anion Gap 13.9 mEq/L (5-15); Blood Urea Nitrogen 18 mg/dl (9-20); Carbon Dioxide 27 mmol/L (22.0-30.0); Chloride 93 mmol/L (98-107); Potassium 3.9 mmoL/L (3.5-5.1); Sodium 130 mmol/L (136-145)
[2023-09-09 19:46] LABS: Alanine Aminotransferase 56 U/L (12-78); Albumin Level 3.7 g/dl (3.5-5.0); Albumin/Globulin Ratio 1.3 (1.1-1.8); Alkaline Phosphatase 30 U/L (38-126); Aspartate Amino Transferase 59 U/L (17-59); Bilirubin,Total 1.5 mg/dl (0.2-1.3); Calcium 8.8 mg/dl (8.4-10.2); Estimated Glomerular Filt Rate 86 ml/min (>60); GFR (African American) 105 ML/MIN (>60); Globulin 2.9 g/dL (1.3-3.2); Glucose 118 mg/dl (74-100); Total Protein,Serum 6.6 g/dl (6.3-8.2)
== END 2023-09-09 23:59 | disposition home or self-care (01) ==
LOC: LAB.DROPOF 09-11 09:50
PROVIDERS: Visit Provider Family Medicine
DX: I10 Essential (primary) hypertension (principal); E78.5 Hyperlipidemia, unspecified; D64.9 Anemia, unspecified
CPT/HCPCS: 80053; 85025

== ENCOUNTER 2023-09-10 08:09 | Outpatient (CLI) | payer BC, SELFPAY ==
[2023-09-10 11:09] LABS: Amylase 52 U/L (30-110); Lipase 45 U/L (23-300)
== END 2023-09-10 23:59 | disposition home or self-care (01) ==
LOC: LAB.DROPOF 09-12 08:10
PROVIDERS: PCP Physician Assistant; Visit Provider Family Medicine
DX: K29.70 Gastritis, unspecified, without bleeding (principal)
CPT/HCPCS: 82150; 83690

== ENCOUNTER 2023-09-12 10:28 | Outpatient (CLI) | payer BC, SELFPAY ==
[2023-09-12 10:48] LABS: Adenovirus F 40/41, stool Not Detected (NotDetected); Astrovirus Not Detected (NotDetected); Campylobacter Not Detected (NotDetected); Clostridium Difficile A/B, PCR Not Detected (NotDetected); Cryptosporidium Not Detected (NotDetected); Cyclospora Cayetanesis Not Detected (NotDetected); Entamoeba histolytica Not Detected (NotDetected); Enteroaggregative E coli Not Detected (NotDetected); Enteropathogenic E coli Not Detected (NotDetected); Enterotoxigenic E coli Not Detected (NotDetected); Giardia lamblia Not Detected (NotDetected); Norovirus Not Detected (NotDetected); Plesimonas Shigalloides, PCR Not Detected (NotDetected); Rotavirus A Not Detected (NotDetected); Salmonella, PCR Not Detected (NotDetected); Sapovirus Not Detected (NotDetected); Shiga-like toxin E coli Not Detected (NotDetected); Shigella Enterovasive E coli Not Detected (NotDetected); Vibrio Cholerae Not Detected (NotDetected); Vibrio, PCR Not Detected (NotDetected); Yersinia Entercolitica, PCR Not Detected (NotDetected)
== END 2023-09-12 23:59 | disposition home or self-care (01) ==
LOC: LAB.DROPOF 10:28
PROVIDERS: PCP Physician Assistant; Visit Provider Family Medicine
DX: R19.7 Diarrhea, unspecified (principal)
CPT/HCPCS: 87506

== ENCOUNTER 2023-09-16 09:44 | Outpatient (CLI) | payer BC, SELFPAY ==
[2023-09-16 10:20] LABS: Basophils # 0.1 K/mm3 (0-0.2); Eosinophils # 1.3 K/mm3 (0.0-0.4); Eosinophils % 10.7 % (0.1-12.0); Hematocrit 37.3 % (42.0-52.0); Hemoglobin 12.5 g/dL (14.1-18.0); Lymphocytes # 1.5 K/mm3 (0.7-4.5); Lymphocytes % 12.2 % (10-50); Mean Corpuscular HGB Conc 33.6 g/dL (31.8-35.4); Mean Corpuscular Hemoglobin 32.8 pg (27.0-31.2); Mean Corpuscular Volume 97.5 fl (80-94); Mean Platelet Volume 8.8 fl (7.4-10.4); Monocytes # 0.7 K/mm3 (0.1-1.0); Monocytes % 6.1 % (1.7-9.3); Neutrophils # 8.6 K/mm3 (1.8-7.8); Neutrophils % 70.1 % (37.0-80.0); Platelet Count 311 K/mm3 (142-424); Red Blood Count 3.82 M/mm3 (4.60-6.20); Red Cell Distribution Width 14.2 % (11.5-17.5); White Blood Count 12.2 K/mm3 (4.8-10.8)
[2023-09-16 10:58] LABS: Alanine Aminotransferase 32 U/L (12-78); Albumin Level 3.4 g/dl (3.5-5.0); Alkaline Phosphatase 34 U/L (38-126); Anion Gap 11.8 mEq/L (5-15); Aspartate Amino Transferase 28 U/L (17-59); Bilirubin,Direct 0.2 mg/dl (0.0-0.4); Bilirubin,Indirect 0.5 mg/dL (0.0-0.9); Bilirubin,Total 0.7 mg/dl (0.2-1.3); Bilirubin,Unconjugated 0.5 mg/dL (0.0-1.1); Blood Urea Nitrogen 7 mg/dl (9-20); Calcium 9.1 mg/dl (8.4-10.2); Carbon Dioxide 30 mmol/L (22.0-30.0); Chloride 97 mmol/L (98-107); Estimated Glomerular Filt Rate 115 ml/min (>60); GFR (African American) 140 ML/MIN (>60); Glucose 96 mg/dl (74-100); Magnesium 1.8 mg/dl (1.6-2.3); Potassium 4.8 mmoL/L (3.5-5.1); Sodium 134 mmol/L (136-145); Total Protein,Serum 6.5 g/dl (6.3-8.2)
== END 2023-09-16 23:59 | disposition home or self-care (01) ==
LOC: LAB 09:45
PROVIDERS: PCP Family Medicine; Visit Provider Nurse Practitioner
DX: R93.1 Abnormal findings on diagnostic imaging of heart and coronary circulation (principal); R53.83 Other fatigue; R94.31 Abnormal electrocardiogram [ECG] [EKG]; R06.00 Dyspnea, unspecified; R07.9 Chest pain, unspecified; E78.5 Hyperlipidemia, unspecified; R42 Dizziness and giddiness; I10 Essential (primary) hypertension; F17.210 Nicotine dependence, cigarettes, uncomplicated
CPT/HCPCS: 36415; 80048; 80076; 83735; 85025; 93270

== ENCOUNTER 2023-09-26 07:17 | Outpatient (CLI) | payer BC, SELFPAY ==
--- NOTE | 2023-09-26 07:17 | US_ITS ---
FINAL REPORT CLINICAL HISTORY: Abdominal pain, heartburn, diarrhea COMPARISON: None FINDINGS: Sonographic images of the right upper quadrant were obtained. The pancreas is partially obscured. There is a coarsened echotexture of the liver consistent with mild fatty infiltration. There is a echogenic nonshadowing focus in the gallbladder consistent with a polyp. The gallbladder wall is accentuated by incomplete distention. There is no evidence of biliary ductal dilatation.The common duct measures 2 mm. Limited images of the right kidney are unremarkable. IMPRESSION: Mild fatty liver. Gallbladder polyp. Reviewed, Interpreted and Dictated by Abdifatah Sebastian MD Transcribed by Viviana Cardoza Authenticated and [facility]
== END 2023-09-26 23:59 | disposition home or self-care (01) ==
LOC: RAD 07:17
PROVIDERS: PCP Family Medicine; Visit Provider Family Medicine
DX: K29.70 Gastritis, unspecified, without bleeding (principal); R10.9 Unspecified abdominal pain; R12 Heartburn; R19.7 Diarrhea, unspecified
CPT/HCPCS: 76705

== ENCOUNTER 2023-10-09 12:01 | Outpatient (CLI) | payer BC, SELFPAY ==
[2023-10-09 13:15] LABS: Basophils # 0.1 K/mm3 (0-0.2); Basophils % 1.1 % (0.1-2.0); Eosinophils # 1.4 K/mm3 (0.0-0.4); Eosinophils % 15.4 % (0.1-12.0); Hematocrit 33.6 % (42.0-52.0); Hemoglobin 11.3 g/dL (14.1-18.0); Lymphocytes # 1.7 K/mm3 (0.7-4.5); Lymphocytes % 18.8 % (10-50); Mean Corpuscular HGB Conc 33.5 g/dL (31.8-35.4); Mean Corpuscular Hemoglobin 31.6 pg (27.0-31.2); Mean Corpuscular Volume 94.3 fl (80-94); Mean Platelet Volume 7.7 fl (7.4-10.4); Monocytes # 0.6 K/mm3 (0.1-1.0); Monocytes % 6.8 % (1.7-9.3); Neutrophils # 5.2 K/mm3 (1.8-7.8); Platelet Count 272 K/mm3 (142-424); Red Blood Count 3.56 M/mm3 (4.60-6.20); Red Cell Distribution Width 15.4 % (11.5-17.5); Reticulocyte % (Auto) 1.7 % (0.9-3.2)
[2023-10-09 13:50] LABS: Chloride 99 mmol/L (98-107)
[2023-10-09 13:51] LABS: Potassium 4.3 mmoL/L (3.5-5.1); Sodium 133 mmol/L (136-145)
[2023-10-09 13:53] LABS: Alanine Aminotransferase 17 U/L (12-78); Alkaline Phosphatase 52 U/L (38-126); Anion Gap 12.3 mEq/L (5-15); Aspartate Amino Transferase 22 U/L (17-59); Bilirubin,Total 0.9 mg/dl (0.2-1.3); Blood Urea Nitrogen 8 mg/dl (9-20); Carbon Dioxide 26 mmol/L (22.0-30.0); Estimated Glomerular Filt Rate 115 ml/min (>60); GFR (African American) 140 ML/MIN (>60)
[2023-10-09 13:54] LABS: Albumin Level 3.7 g/dl (3.5-5.0); Albumin/Globulin Ratio 1.1 (1.1-1.8); Calcium 9.3 mg/dl (8.4-10.2); Globulin 3.5 g/dL (1.3-3.2); Glucose 88 mg/dl (74-100); Iron 61 ug/dL (49-181); Total Protein,Serum 7.2 g/dl (6.3-8.2)
[2023-10-09 13:57] LABS: Lactate Dehydrogenase 202 U/L (313-618)
[2023-10-09 14:03] LABS: Total Iron Binding Capacity 217 ug/dL (261-462)
[2023-10-09 14:26] LABS: Thyroid Stimulating Hormone 1.48 uIU/mL (0.465-4.68)
[2023-10-09 14:30] LABS: Ferritin 218 ng/ml (17.9-464)
[2023-10-11 04:10] LABS: Haptoglobin 148 mg/dL (29-370)
[2023-10-11 12:06] LABS: Peripheral Smear Review Scanned Result
== END 2023-10-09 23:59 | disposition home or self-care (01) ==
LOC: LAB 12:02
PROVIDERS: PCP Family Medicine; Visit Provider Internal Medicine Medical Oncology
DX: D50.9 Iron deficiency anemia, unspecified (principal); D64.9 Anemia, unspecified
CPT/HCPCS: 36415; 80050; 80053; 82728; 83010; 83540; 83550; 83615; 84443; 85025; 85044; 86880

== ENCOUNTER 2023-10-24 14:06 | Outpatient (CLI) | payer BC, SELFPAY | END 2023-10-24 23:59 | disposition home or self-care (01) | LOC: LAB 14:07 | PROVIDERS: PCP Physician Assistant; Visit Provider Internal Medicine | DX: Z02.9 Encounter for administrative examinations, unspecified (principal) ==

== ENCOUNTER 2023-10-26 09:25 | Outpatient (CLI) | payer BC, SELFPAY ==
[2023-10-26 09:46] LABS: Basophils # 0.1 K/mm3 (0-0.2); Basophils % 1.4 % (0.1-2.0); Eosinophils # 1.3 K/mm3 (0.0-0.4); Eosinophils % 15.1 % (0.1-12.0); Hematocrit 36.9 % (42.0-52.0); Hemoglobin 12.2 g/dL (14.1-18.0); Lymphocytes # 1.4 K/mm3 (0.7-4.5); Mean Corpuscular HGB Conc 33.1 g/dL (31.8-35.4); Mean Corpuscular Hemoglobin 31.6 pg (27.0-31.2); Mean Corpuscular Volume 95.4 fl (80-94); Mean Platelet Volume 8.2 fl (7.4-10.4); Monocytes # 0.5 K/mm3 (0.1-1.0); Monocytes % 6.3 % (1.7-9.3); Neutrophils # 5.3 K/mm3 (1.8-7.8); Neutrophils % 61.3 % (37.0-80.0); Platelet Count 250 K/mm3 (142-424); Red Blood Count 3.87 M/mm3 (4.60-6.20); Red Cell Distribution Width 16.1 % (11.5-17.5); White Blood Count 8.7 K/mm3 (4.8-10.8)
[2023-10-26 10:29] LABS: Anion Gap 14.1 mEq/L (5-15); Blood Urea Nitrogen 10 mg/dl (9-20); Calcium 9.1 mg/dl (8.4-10.2); Carbon Dioxide 27 mmol/L (22.0-30.0); Chloride 95 mmol/L (98-107); Estimated Glomerular Filt Rate 99 ml/min (>60); GFR (African American) 120 ML/MIN (>60); Glucose 103 mg/dl (74-100); Potassium 4.1 mmoL/L (3.5-5.1); Sodium 132 mmol/L (136-145)
[2023-10-26 10:46] LABS: Free T4 (Free Thyroxine) 1.03 ng/dl (0.78-2.19)
[2023-10-26 11:00] LABS: Thyroid Stimulating Hormone 2.75 uIU/mL (0.465-4.68)
[2023-10-29 04:19] LABS: Sodium, Urine 21 mmol/L (Not Estab.); Sodium, Urine 61 mmol/24 hr (58-337)
[2023-10-29 10:22] LABS: Antinuclear Antibodies, IFA Negative (.)
[2023-10-31 06:51] LABS: Dopamine, Plasma < 30 pg/mL (0-48); Epinephrine, Plasma 25 pg/mL (0-62); Norepinephrine, Plasma 591 pg/mL (0-874)
== END 2023-10-26 23:59 | disposition home or self-care (01) ==
LOC: LAB 09:27
PROVIDERS: Visit Provider Internal Medicine
DX: I95.1 Orthostatic hypotension (principal); R00.0 Tachycardia, unspecified; E78.5 Hyperlipidemia, unspecified; R55 Syncope and collapse; R42 Dizziness and giddiness
CPT/HCPCS: 36415; 80048; 82384; 82533; 83520; 84300; 84439; 84443; 85025; 86038

== ENCOUNTER 2023-12-16 12:56 | Outpatient (CLI) | payer BC, SELFPAY ==
--- NOTE | 2023-12-16 13:01 | CT_ITS ---
FINAL REPORT TECHNIQUE: Axial CT images of the chest were obtained without contrast. Low-dose protocol was utilized. This study was performed with techniques to keep radiation doses as low as reasonably achievable (ALARA). Individualized dose reduction techniques using automated exposure control or adjustment of mA and/or kV according to the patient's size were employed. CLINICAL HISTORY: SMOKER, CURRENT, 44YEARS, 1PPD, COPD COMPARISON: 06/07/2022 FINDINGS: CT CHEST WITHOUT, LOW DOSE SCREENING CT Di Vol: 2.90 mGy DLP: 112.55 mGy*cm There is no axillary, mediastinal, or hilar adenopathy. The heart size is normal. There is no pleural or pericardial effusion. The lung windows show a 3 mm nodule in the posterior right upper lobe best seen on image 31 of series 3. There is biapical pleural and parenchymal scarring. Scarring is noted at the periphery of the right major fissure. Limited images of the upper abdomen demonstrate no acute findings. IMPRESSION: Right upper lobe 3 mm nodule. LR Category 2: 12 month follow-up low-dose chest CT is recommended. Reviewed, Interpreted and Dictated by Abdifatah Sebastian MD Transcribed by Viviana Cardoza Authenticated and [facility]
== END 2023-12-16 23:59 | disposition home or self-care (01) ==
LOC: RAD 12:56
PROVIDERS: PCP Family Medicine; Visit Provider Nurse Practitioner Family
DX: F17.200 Nicotine dependence, unspecified, uncomplicated (principal)
CPT/HCPCS: 71271

== ENCOUNTER 2024-01-01 14:17 | Outpatient (CLI) | payer BC, SELFPAY ==
[2024-01-01 14:42] LABS: Basophils # 0.1 K/mm3 (0-0.2); Basophils % 1.5 % (0.1-2.0); Hematocrit 46.2 % (42.0-52.0); Hemoglobin 15.3 g/dL (14.1-18.0); Lymphocytes # 1.6 K/mm3 (0.7-4.5); Lymphocytes % 21.2 % (10-50); Mean Corpuscular HGB Conc 33.2 g/dL (31.8-35.4); Mean Corpuscular Hemoglobin 31.4 pg (27.0-31.2); Mean Corpuscular Volume 94.8 fl (80-94); Mean Platelet Volume 8.3 fl (7.4-10.4); Monocytes # 0.7 K/mm3 (0.1-1.0); Monocytes % 8.7 % (1.7-9.3); Neutrophils # 4.3 K/mm3 (1.8-7.8); Neutrophils % 55.7 % (37.0-80.0); Platelet Count 219 K/mm3 (142-424); Red Blood Count 4.88 M/mm3 (4.60-6.20); Red Cell Distribution Width 14.5 % (11.5-17.5); White Blood Count 7.7 K/mm3 (4.8-10.8)
[2024-01-01 15:04] LABS: Alanine Aminotransferase 27 U/L (12-78); Albumin Level 4.2 g/dl (3.5-5.0); Alkaline Phosphatase 58 U/L (38-126); Anion Gap 7.8 mEq/L (5-15); Aspartate Amino Transferase 37 U/L (17-59); Bilirubin,Direct 0.2 mg/dl (0.0-0.4); Bilirubin,Indirect 0.7 mg/dL (0.0-0.9); Bilirubin,Total 0.9 mg/dl (0.2-1.3); Bilirubin,Unconjugated 0.7 mg/dL (0.0-1.1); Blood Urea Nitrogen 12 mg/dl (9-20); Calcium 9.5 mg/dl (8.4-10.2); Carbon Dioxide 30 mmol/L (22.0-30.0); Chloride 104 mmol/L (98-107); Chol/HDL Ratio 4.4 (1-3.5); Cholesterol 223 mg/dl (140-200); Estimated Glomerular Filt Rate 99 ml/min (>60); GFR (African American) 120 ML/MIN (>60); Glucose 89 mg/dl (74-100); HDL Cholesterol 51 mg/dl (40-60); Magnesium 2.1 mg/dl (1.6-2.3); Potassium 3.8 mmoL/L (3.5-5.1); Sodium 138 mmol/L (136-145); Total Protein,Serum 7.2 g/dl (6.3-8.2); Triglycerides 76 mg/dl (30-150); VLDL Cholesterol 15 mg/dL (0-40)
[2024-01-01 15:16] LABS: Direct LDL Cholesterol 141.12 mg/dL (100-129)
[2024-01-01 15:22] LABS: Free T4 (Free Thyroxine) 1.08 ng/dl (0.78-2.19)
[2024-01-01 15:34] LABS: Thyroid Stimulating Hormone 1.02 uIU/mL (0.465-4.68)
== END 2024-01-01 23:59 | disposition home or self-care (01) ==
LOC: LAB 14:18
PROVIDERS: PCP Family Medicine; Visit Provider Internal Medicine
DX: I95.1 Orthostatic hypotension (principal); E78.5 Hyperlipidemia, unspecified; R42 Dizziness and giddiness; I10 Essential (primary) hypertension; E03.9 Hypothyroidism, unspecified; Z72.0 Tobacco use
CPT/HCPCS: 36415; 80048; 80061; 80076; 83735; 84439; 84443; 85025

== ENCOUNTER 2024-02-18 11:58 | Outpatient (CLI) | payer BC, SELFPAY ==
[2024-02-18] VITALS (9 sets, daily range): BP systolic 130–173; BP diastolic 72–101; PULSE 69–92; RESP 18; O2SAT 97–100; BMI 20.9
--- NOTE | 2024-02-18 11:59 | CT_ITS ---
APPROVED REPORT Sleeve Fixer: CLINICAL INDICATION Chest Pain TECHNIQUE Image Acquisition: A 128 slice MDCT scanner ([employer] DIRAmeda View) was used for data acquisition. A noncontrast coronary calcium scan was performed. A CT attenuation threshold of 130 Hounsfield units (HU) was used for the detection of calcium in contiguous voxels of 1 sq mm in area to be counted as individual lesions. Bolus tracking in the ascending aorta with a threshold of 180 HU was performed. Immediately afterwards, ECG synchronized cardiac CT was then performed from the cardiac base to apex using retrospective gating with ECG tube current modulation. A total of 85 mL of Isovue 370 mg/mL contrast medium was administered at 5 mL/sec followed by a saline flush using a biphasic injection protocol. A tube voltage of 120 KVp was used. The average heart rate at the time of acquisition was 56 bpm and regular. Image Reconstruction Transaxial images were reconstructed at 0.67 mm slide thickness. Data was reviewed interactively on an advanced workstation capable of 2 and 3-dimensional displays in all conventional reconstruction formats, including multiplanar reformations, maximum intensity projections, curved multiplanar reformations, and volume rendered reconstructions. When applicable, selected routine images describing the relevant coronary anatomy and pathology were saved and sent to PACS. Complications None Technical Quality Overall image quality was good. Coronary artery opacification was adequate. Total DLP (Dose-Length Product) is 1909.8 mGy-cm. The reported value represents the total of one or more individual components during the CT acquisition of this date and at this time, and as such, the same value may appear in more than one CT report depending on the interpreting/reporting physicians. COMPARISON None FINDINGS CT Coronary Calcium Scoring LMA (Left Main Artery) = 164 LAD (Left Anterior Descending) = 29 LCX (Left Coronary Circumflex) = 16 RCA (Right Coronary Artery) = 594 Total Calcium Score = 802 using the AJ-130 method. The observed calcium score of 802 is at 95th percentile for subjects of the same age, sex, and race/ethnicity. The interpretation of the calcium heart score is based on the following continuum*: 0 = no calcified plaque detected (risk of coronary artery disease is very low ??? less than 5%) 1-10 = calcium detected in extremely minimal levels (risk of coronary diseases is still low ??? less than 10%) 11-100 = mild levels of plaque detected with certainty (mild or minimal narrowing of heart arteries is likely) 101-400 = definite,at least moderate levels of plaque detected (relatively high risk of a heart attack within 3-5 years) >401-999 = extensive levels of plaque detected (high risk of heart attack, high levels of vascular disease are present, high likelihood of at least one significant coronary narrowing) *The calcium heart score quantifies the burden of coronary calcification/plaque in the coronary arteries. The calcium heart score is not able to evaluate the presence or burden of non-calcified (i.e. soft) plaque. There is also identifiable calcification in the aortic valve and the descending thoracic aorta. Coronary CT Angiography The coronary arterial system is right dominant. Quantitative Stenosis Grading: Left Main (LM): The left main originates normally from the left sinus of Valsalva. The LM bifurcates into the left anterior descending artery and left circumflex artery. There is mixed calcified/noncalcified plaque in the ostial LM segment, as well as the mid LM, with up to 30-50% luminal stenosis. Left Anterior Descending (LAD) and Diagonal Branches: The LAD gives off 3 diagonal branch(es). There is mixed calcified/noncalcified plaque in the proximal LAD and the first diagonal branch, with up to 30-50% luminal stenosis. There is no evidence of LAD-myocardial bridge. Ramus-intermedius (RI): There is calcified plaque in the proximal RI segment, with no significant luminal stenosis. Left Circumflex (LCX) and Obtuse Marginals (OM): The LCX gives off 1 Obtuse Marginal (OM) branch(es). There is calcified plaque in the proximal LCx segment, with no significant luminal stenosis. Right Coronary Artery (RCA): The RCA originates normally from the right sinus of Valsalva. The RCA gives off a posterior descending artery (PDA) and posterolateral (PL) branches. There is mixed calcified/noncalcified plaque in the proximal RCA segment, with up to 70-90% luminal stenosis. Non-Coronary Cardiac Findings: Analysis of the left ventricular (LV) structure and function was performed after 3-D reconstruction of the LV from axial images, with user-corrected automatic contouring for assessment of LV volumes and user-defined reconstruction from oblique planes for measurement of 3-D cardiac structure and function. -The left ventricle systolic function is normal. -There is no left atrial appendage filling defect. Two right pulmonary veins and two left pulmonary veins drain normally into the left atrium. -No pericardial thickening or calcification. -Central and branch pulmonary arteries in the [id number] are unremarkable. -Thoracic aorta within the visualized thoracic aortic-branches in the [id number] is unremarkable. Extracardiac Structures No significant extra-cardiac findings. Note, however, that this study is focused on the cardiac findings. IMPRESSION -Presence of coronary calcification with an Agatston score = 802 using the AJ-130 method. -The observed calcium score of 802 is at 95th percentile for subjects of the same age, sex, and race/ethnicity. -Presence of multivessel atherosclerotic coronary disease, most notably in the ostial LM segment (up to 50% LM stenosis), proximal RCA (70-90% stenosis), and proximal LAD/D1 (30-50% stenosis), with likely evidence of significant flow-limiting atherosclerosis of the coronary arteries. -CAD-RADS 4B. Management recommendations per ACC/AHA guidelines*, as clinically appropriate. *Recommendations: CAD RADS 0: Reassurance. Consider non-atherosclerotic causes of chest pain. CAD RADS 1: Consider non-atherosclerotic causes of chest pain. Consider preventive therapy and risk factor modification. CAD RADS 2: Consider non-atherosclerotic causes of chest pain. Consider preventive therapy and risk factor modification, particularly for patients with nonobstructive plaque in multiple segments. CAD RADS 3: Consider further functional testing. Consider symptom-guided anti-ischemic and preventive pharmacotherapy as well as risk factor modification per published guideline statements. CAD RADS 4A: Consider further functional testing or invasive coronary angiography with revascularization per published guideline statements. Consider symptom-guided anti-ischemic and preventive pharmacotherapy as well as risk factor modification per published guideline statements. CAD RADS 4B: Invasive coronary angiography recommended with revascularization per published guideline statements. Consider symptom-guided anti-ischemic and preventive pharmacotherapy as well as risk factor modification per published guideline statements. CAD RADS 5: Consider invasive angiography and/or viability assessment with revascularization per published guideline statements. Consider symptom-guided anti-ischemic and preventive pharmacotherapy as well as risk factor modification per published guideline statements. CRITICAL RESULT None COMMUNICATION Per this written report The coronary and cardiac findings of this CCTA were reviewed, reported, and signed by Tano Soto MD (Internet Sourcer) Conclusion Electronically signed by : Joi Soto MD 02/20/2024 13:01:15
[2024-02-18] MEDS: IVABRADINE HCL 7.5MG TABLET PO (12:14)
[2024-02-18] MEDS: METOPROLOL TARTRATE 50MG TABLET PO (12:15)
[2024-02-18 12:29] LABS: Anion Gap 6.7 mEq/L (5-15); Blood Urea Nitrogen 8 mg/dl (9-20); Calcium 9.2 mg/dl (8.4-10.2); Carbon Dioxide 33 mmol/L (22.0-30.0); Chloride 102 mmol/L (98-107); Creatinine Clearance Estimated 112 mL/min (50-200); Estimated Glomerular Filt Rate 115 ml/min (>60); GFR (African American) 139 ML/MIN (>60); Glucose 96 mg/dl (74-100); Potassium 3.7 mmoL/L (3.5-5.1); Sodium 138 mmol/L (136-145)
[2024-02-18] MEDS: METOPROLOL TARTRATE 5MG/5ML VIAL 5 MG IV ×3 (13:28→13:45)
[2024-02-18] MEDS: NITROGLYCERIN 0.4MG SL TABLET SL (13:30)
[2024-02-18] MEDS: 0.9 % SODIUM CHLORIDE 50 ML VIAL IV (13:52)
[2024-02-18] MEDS: IOPAMIDOL-370 (76%);100ML BOTTLE 85 ML IV (13:52)
[2024-02-18] MEDS: SODIUM CHLORIDE 0.9% 10ML SYR (RAD ONLY) 10 ML IV (13:52)
== END 2024-02-18 23:59 | disposition home or self-care (01) ==
PROVIDERS: PCP Family Medicine; Visit Provider Internal Medicine
DX: R93.1 Abnormal findings on diagnostic imaging of heart and coronary circulation (principal); R07.89 Other chest pain; R06.09 Other forms of dyspnea
CPT/HCPCS: 75574; 80048; Q9967

== ENCOUNTER 2024-03-17 09:00 | Day surgery (SDC) | payer BC, SELFPAY ==
[2024-03-17] VITALS (12 sets, daily range): BP systolic 149–182; BP diastolic 97–110; PULSE 65–94; RESP 14–19; O2SAT 92–100; BMI 20.7
--- NOTE | 2024-03-17 07:21 | IR_ITS ---
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 COMPLICATIONS NONE Estimated Blood Loss: LESS THAN 10 ML TECHNIQUE One percent lidocaine used to anesthetize the right anterior aspect of the wrist. The right radial artery was accessed via the Seldinger technique. A 6 [place] sheath was placed in the right radial artery. 2.5 mg of Verapamil, 800 mcg of nitroglycerin, 1mg Lidocaine and 5000 U Heparin were given through the arterial sheath. The 6 [place] JL 3 guide catheter was used to perform selective coronary angiogram. At the end the diagnostic angiogram therapeutic heparin was administered giving a therapeutic ACT and the guide catheter was placed in left main artery followed by Choice PT extra-support wire down the LAD. Intravascular ultrasound probe was advanced which demonstrated mild ostial left main stenosis less than 10% in severity. Given the lack of angiographically significant left main disease the apparatus was removed and the guide catheter was placed in the right coronary followed by the Choice PT extra-support wire placed distally. A 4 mm x 38 mm Eagle frontier stent was deployed at 14 samantha in the proximal to mid right coronary reducing the stenosis. A 4 mm x 12 mm noncompliant balloon was deployed at 24 samantha in the mid and proximal portion of the stent to further post dilate. Excellent intragraft results were obtained with MOUNA-3 flow being present before and after the procedure at the end the procedure the apparatus was removed the sheath was removed and hemostasis was achieved using TR banding patient was transferred to the postop holding area in stable condition ANGIOGRAPHIC RESULTS The left main artery Has an ostial 10% stenosis as proven by intravascular ultrasound The left anterior descending artery Has proximal and mid vessel mild 10% luminal regularities The circumflex artery Is nondominant gives rise to a medium sized ramus intermedius which has proximal 20 and 30% stenoses. The circumflex artery itself is normal The right coronary artery Large and dominant and has mid vessel concentric 80% stenosis with an additional concentric 70% stenosis. Distally there are 30% stenoses The JOSHI ventriculogram reveals Not performed The left ventricular end-diastolic pressure Not measured IMPRESSION Mild ostial left main disease as described above 3 disease throughout the dominant right coronary artery with successful stenting reducing the lesion to less than 10% with 1 drug-eluting stent PLAN 1. Effient and aspirin 2. LDL less than 55 to be achieved with high intensity statin 3. Avoidance of tobacco products 4. Risk factor modification 5. Cardiac rehabilitation Electronically signed by : Avery Bateman MD 03/17/2024 11:42:24
[2024-03-17 09:26] LABS: Basophils # 0.1 K/mm3 (0-0.2); Basophils % 1.5 % (0.1-2.0); Eosinophils # 0.6 K/mm3 (0.0-0.4); Eosinophils % 8.8 % (0.1-12.0); Hematocrit 40.1 % (42.0-52.0); Hemoglobin 14.5 g/dL (14.1-18.0); Lymphocytes # 1.7 K/mm3 (0.7-4.5); Lymphocytes % 23.8 % (10-50); Mean Corpuscular HGB Conc 36.3 g/dL (31.8-35.4); Mean Platelet Volume 7.6 fl (7.4-10.4); Monocytes # 0.5 K/mm3 (0.1-1.0); Monocytes % 7.3 % (1.7-9.3); Neutrophils # 4.3 K/mm3 (1.8-7.8); Neutrophils % 58.5 % (37.0-80.0); Platelet Count 197 K/mm3 (142-424); Red Cell Distribution Width 14.1 % (11.5-17.5); White Blood Count 7.3 K/mm3 (4.8-10.8)
[2024-03-17 09:43] LABS: Anion Gap 9.3 mEq/L (5-15); Blood Urea Nitrogen 10 mg/dl (9-20); Calcium 8.8 mg/dl (8.4-10.2); Carbon Dioxide 31 mmol/L (22.0-30.0); Chloride 104 mmol/L (98-107); Creatinine Clearance Estimated 99 mL/min (50-200); Estimated Glomerular Filt Rate 99 ml/min (>60); GFR (African American) 119 ML/MIN (>60); Glucose 88 mg/dl (74-100); Potassium 3.3 mmoL/L (3.5-5.1); Sodium 141 mmol/L (136-145)
[2024-03-17] MEDS: HEPARIN 1,000 UNITS/ML 10ML VIAL (CATH LAB) 10000 UNIT IV (10:46)
[2024-03-17] MEDS: HEPARIN 1,000 UNITS/500ML NS (CATH LAB) 3000 UNIT IV (10:46)
[2024-03-17] MEDS: LIDOCAINE 1% 10ML MDV 20 ML IJ (10:46)
[2024-03-17] MEDS: VERAPAMIL 2.5MG/ML 2ML VIAL 2.5 MG IV (10:46)
[2024-03-17] MEDS: 0.9 % SODIUM CHLORIDE 500 ML 25 ML IV (10:47)
[2024-03-17] MEDS: diphenhydrAMINE 50MG/ML VIAL 50 MG IV (10:55)
[2024-03-17] MEDS: MIDAZOLAM HCL 1MG/ML 5ML VIAL 1 MG IV (10:56)
[2024-03-17] MEDS: FENTANYL 100MCG/2ML VIAL 50 MCG IV (10:56)
[2024-03-17] MEDS: PRASUGREL 10MG TAB 60 MG PO (11:42)
[2024-03-17] MEDS: ASPIRIN 325MG TABLET 325 MG PO (11:42)
[2024-03-17] MEDS: IOPAMIDOL-370 (76%);100ML BOTTLE 100 ML IV (14:13)
[2024-03-17 14:15] LABS: CATHL Activated Clotting Time 289 SEC (74-125)
== END 2024-03-17 14:57 | disposition home or self-care (01) ==
PROVIDERS: PCP Family Medicine; Visit Provider Internal Medicine
DX: I25.118 Atherosclerotic heart disease of native coronary artery with other forms of angina pectoris (principal); R93.1 Abnormal findings on diagnostic imaging of heart and coronary circulation; F17.210 Nicotine dependence, cigarettes, uncomplicated; I10 Essential (primary) hypertension; I77.1 Stricture of artery; E55.9 Vitamin D deficiency, unspecified; Z79.899 Other long term (current) drug therapy
CPT/HCPCS: 80048; 85025; 85347; 92928; 92978; 93458; 99152; 99153; C1725; C1769; C1874; C9600; J1200; J1644; J2250; J3010; Q9967

== ENCOUNTER 2024-03-19 09:31 | Outpatient (CLI) | payer BC, SELFPAY ==
[2024-03-19 10:19] LABS: Basophils # 0.1 K/mm3 (0-0.2); Basophils % 1.1 % (0.1-2.0); Eosinophils # 0.6 K/mm3 (0.0-0.4); Eosinophils % 6.9 % (0.1-12.0); Hematocrit 39.7 % (42.0-52.0); Hemoglobin 14.3 g/dL (14.1-18.0); Lymphocytes # 1.7 K/mm3 (0.7-4.5); Lymphocytes % 18.1 % (10-50); Mean Corpuscular HGB Conc 35.9 g/dL (31.8-35.4); Mean Corpuscular Volume 91.9 fl (80-94); Mean Platelet Volume 7.4 fl (7.4-10.4); Monocytes # 0.6 K/mm3 (0.1-1.0); Monocytes % 6.5 % (1.7-9.3); Neutrophils # 6.3 K/mm3 (1.8-7.8); Neutrophils % 67.5 % (37.0-80.0); Platelet Count 205 K/mm3 (142-424); Red Blood Count 4.32 M/mm3 (4.60-6.20); Red Cell Distribution Width 14.1 % (11.5-17.5); White Blood Count 9.4 K/mm3 (4.8-10.8)
[2024-03-19 10:49] LABS: Anion Gap 10.7 mEq/L (5-15); Blood Urea Nitrogen 10 mg/dl (9-20); Calcium 9.2 mg/dl (8.4-10.2); Carbon Dioxide 30 mmol/L (22.0-30.0); Chloride 103 mmol/L (98-107); Estimated Glomerular Filt Rate 115 ml/min (>60); GFR (African American) 139 ML/MIN (>60); Glucose 88 mg/dl (74-100); Potassium 3.7 mmoL/L (3.5-5.1); Sodium 140 mmol/L (136-145)
== END 2024-03-19 23:59 | disposition home or self-care (01) ==
LOC: LAB 09:32
PROVIDERS: PCP Family Medicine; Visit Provider Internal Medicine
DX: I25.10 Atherosclerotic heart disease of native coronary artery without angina pectoris (principal); Z72.0 Tobacco use
CPT/HCPCS: 36415; 80048; 85025

== ENCOUNTER 2024-04-07 13:03 | Outpatient (RCR) | payer BC, SELFPAY | END 2024-06-11 15:00 | disposition home or self-care (01) | LOC: CR 13:03 | PROVIDERS: Visit Provider Internal Medicine | DX: Z95.5 Presence of coronary angioplasty implant and graft (principal) | CPT/HCPCS: 93798 ==

== ENCOUNTER 2024-04-09 07:53 | Outpatient (CLI) | payer BC, SELFPAY ==
--- NOTE | 2024-04-09 07:53 | US_ITS ---
FINAL REPORT CLINICAL HISTORY: Gallbladder polyp FINDINGS: Sonographic images of the right upper quadrant were obtained. The pancreas is partially obscured. There is mild fatty infiltration of the liver. A small gallbladder polyp is once again noticed in the fundus of the gallbladder. There is no evidence of biliary ductal dilatation.The common duct measures 2 mm. Limited images of the right kidney are unremarkable. IMPRESSION: Small gallbladder polyp is once again noted, unchanged from the prior exam of 09/26/2023. No biliary ductal dilatation is seen. Mild fatty infiltration of the liver. Reviewed, Interpreted and Dictated by Alejandro Fried III, MD Transcribed by Hazel Lozano Authenticated and [facility]
== END 2024-04-09 23:59 | disposition home or self-care (01) ==
LOC: RAD 07:53
PROVIDERS: PCP Family Medicine; Visit Provider Surgery
DX: K82.4 Cholesterolosis of gallbladder (principal)
CPT/HCPCS: 76705

== ENCOUNTER 2024-04-23 06:58 | Outpatient (CLI) | payer BC, SELFPAY ==
--- NOTE | 2024-04-23 | CA_ITS ---
APPROVED REPORT Exam: Pharmacologic Technologist: Eliza Mendieta Ht: 6 ft 0 in Wt: 159 lbs BSA: 1.93 m2 HR: 83 bpm BP: 173/89 mmHg Rhythm: NSR, rightward axisM Medical History Medications: Metoprolol, Omeprazole, Amlodipine, Albuterol Cardiac Risk Factors: Smoking Stress Test Details HR Resting HR: 83 bpm Max Heart Rate (APMHR): 160.108155 bpm Target HR (85% APMHR): 136.659241 bpm Recovery HR: 101 bpm BP Resting BP: 173.0/89.0 mmHg Recovery BP: 142.0/85.0 mmHg ECG Resting ECG: NSR, rightward axis Stress ECG Conclusion During lexiscan pt experinced brief and mild SOA. No arrhythmias noted. No significant ST changes. Unremarkable lexiscan stress. Electronically signed by : Joi Soto MD 04/24/2024 13:01:19
--- NOTE | 2024-04-23 07:02 | NM_ITS ---
APPROVED REPORT Exam: Nuclear Stress Test Indication: Chest pain, SOB, HTN, Tobacco use, CAD Patient Location: Outpatient Stress Tech: Eliza Mendieta OR Tech:Belen Barragan, ARRT, RT (R)(N) Ht: 6 ft 0 in Wt: 155 lbs HR: 88 bpm BP: 173/89 mmHg BSA: 1.91 m2 TID: 0.96 History: Chest pain, SOB, HTN, Tobacco use, CAD Procedure: Patient received 0.4 mg of intravenous Lexiscan, resting heart rate 88 bpm, resting blood pressure 173/89 mmHg, with Lexiscan maximum heart rate achieved was 108 bpm which is % of the maximum predicted heart rate and blood pressure was 154/93 mmHg. With Lexiscan, patient denied any complaint of chest pain. Cardiac Stress and Resting SPECT Images: Cardiac Stress and Resting SPECT images were obtained using technetium 99m Myoview 31.2 mCi stress and 10.73 mCi at rest. Resting and stress imaging in supine and prone positions demonstrate no evidence of fixed or reversible perfusion defects. Gated imaging demonstrates mild reduction in global LV systolic function. LVEF is calculated at 48%. Conclusion: No evidence of fixed or reversible perfusion defects. Gated imaging demonstrates mild reduction in global LV systolic function. LVEF is calculated at 48%. Electronically signed by : Joi Soto MD 04/24/2024 12:50:44
[2024-04-23] MEDS: ISOTOPE MYOVIEW (PER STUDY) 1 DOSE IV (08:41)
[2024-04-23] MEDS: REGADENOSON 0.4MG/5ML SYRINGE 0.4 MG IV (08:41)
[2024-04-23] MEDS: SODIUM CHLORIDE 0.9% 10ML SYR (RAD ONLY) 10 ML IV ×2 (08:41)
== END 2024-04-23 23:59 | disposition home or self-care (01) ==
LOC: RAD 06:59
PROVIDERS: PCP Family Medicine; Visit Provider Internal Medicine
DX: I25.10 Atherosclerotic heart disease of native coronary artery without angina pectoris (principal); R06.09 Other forms of dyspnea; R07.89 Other chest pain; R94.31 Abnormal electrocardiogram [ECG] [EKG]
CPT/HCPCS: 78452; 93017; 93018; 93306; A9502; J2785

== ENCOUNTER 2024-05-25 08:30 | Outpatient (CLI) | payer BC, SELFPAY ==
[2024-05-25 18:10] LABS: Basophils # 0.1 K/mm3 (0-0.2); Basophils % 1.5 % (0.1-2.0); Eosinophils # 0.6 K/mm3 (0.0-0.4); Eosinophils % 7.2 % (0.1-12.0); Hematocrit 46.1 % (42.0-52.0); Hemoglobin 15.6 g/dL (14.1-18.0); Lymphocytes # 1.9 K/mm3 (0.7-4.5); Lymphocytes % 21.6 % (10-50); Mean Corpuscular HGB Conc 33.8 g/dL (31.8-35.4); Mean Corpuscular Hemoglobin 31.8 pg (27.0-31.2); Mean Corpuscular Volume 93.9 fl (80-94); Mean Platelet Volume 10.1 fl (7.4-10.4); Monocytes # 0.8 K/mm3 (0.1-1.0); Monocytes % 8.5 % (1.7-9.3); Neutrophils # 5.4 K/mm3 (1.8-7.8); Neutrophils % 60.9 % (37.0-80.0); Platelet Count 266 K/mm3 (142-424); Red Blood Count 4.91 M/mm3 (4.60-6.20); White Blood Count 8.9 K/mm3 (4.8-10.8)
[2024-05-25 19:19] LABS: Bilirubin,Unconjugated 1.2 mg/dL (0.0-1.1)
[2024-05-25 19:20] LABS: Alanine Aminotransferase 40 U/L (12-78); Alkaline Phosphatase 63 U/L (38-126); Aspartate Amino Transferase 36 U/L (17-59); Bilirubin,Direct 0.2 mg/dl (0.0-0.4); Bilirubin,Indirect 1.2 mg/dL (0.0-0.9); Bilirubin,Total 1.4 mg/dl (0.2-1.3); Chol/HDL Ratio 3.5 (1-3.5); Cholesterol 166 mg/dl (140-200); HDL Cholesterol 47 mg/dl (40-60); Total Protein,Serum 7.4 g/dl (6.3-8.2); Triglycerides 132 mg/dl (30-150); VLDL Cholesterol 26 mg/dL (0-40)
[2024-05-25 20:19] LABS: Vitamin B12 432 pg/mL (239-931)
== END 2024-05-25 23:59 | disposition home or self-care (01) ==
LOC: LAB.DROPOF 05-26 10:48
PROVIDERS: PCP Family Medicine; Visit Provider Family Medicine
DX: Z00.00 Encounter for general adult medical examination without abnormal findings (principal); R93.1 Abnormal findings on diagnostic imaging of heart and coronary circulation; D75.89 Other specified diseases of blood and blood-forming organs
CPT/HCPCS: 80061; 80076; 82607; 85025

== ENCOUNTER 2024-09-22 15:18 | Outpatient (CLI) | payer SELFPAY ==
[2024-09-22 15:37] LABS: Basophils # 0.1 K/mm3 (0-0.2); Basophils % 0.9 % (0.1-2.0); Eosinophils # 0.1 Kmm3 (0.0-0.4); Eosinophils % 1.5 % (0.1-12.0); Hematocrit 43.5 % (42.0-52.0); Hemoglobin 14.7 g/dL (14.1-18.0); Immature Granulocytes # 0.04 10^3uL; Immature Granulocytes % 0.4 %; Lymphocytes # 2.3 K/mm3 (0.7-4.5); Lymphocytes % 23.8 % (10-50); Mean Corpuscular HGB Conc 33.8 g/dL (31.8-35.4); Mean Corpuscular Hemoglobin 31.8 pg (27.0-31.2); Mean Corpuscular Volume 94.2 fl (80-94); Mean Platelet Volume 9.1 fl (7.4-10.4); Monocytes # 0.6 K/mm3 (0.1-1.0); Monocytes % 6.6 % (1.7-9.3); Neutrophils # 6.4 K/mm3 (1.8-7.8); Neutrophils % 66.8 % (37.0-80.0); Nucleated Red Blood Cells # 0 10^3/uL; Nucleated Red Blood Cells % 0 %; Platelet Count 255 K/mm3 (142-424); Red Blood Count 4.62 M/mm3 (4.60-6.20); Red Cell Distribution Width 12.1 % (11.5-17.5); Red Cell Distribution Width-SD 42.5 fL; White Blood Count 9.6 K/mm3 (4.8-10.8)
[2024-09-22 16:07] LABS: Alanine Aminotransferase 36 U/L (12-78); Albumin Level 4.5 g/dl (3.5-5.0); Alkaline Phosphatase 51 U/L (38-126); Aspartate Amino Transferase 32 U/L (17-59); Bilirubin,Direct 0.2 mg/dl (0.0-0.4); Bilirubin,Indirect 0.7 mg/dL (0.0-0.9); Bilirubin,Total 0.9 mg/dl (0.2-1.3); Bilirubin,Unconjugated 0.7 mg/dL (0.0-1.1); Blood Urea Nitrogen 7 mg/dl (9-20); Calcium 9.3 mg/dl (8.4-10.2); Carbon Dioxide 30 mmol/L (22.0-30.0); Chloride 103 mmol/L (98-107); Chol/HDL Ratio 2.5 (1-3.5); Cholesterol 158 mg/dl (140-200); Estimated Glomerular Filt Rate 115 ml/min (>60); GFR (African American) 139 ML/MIN (>60); Glucose 81 mg/dl (74-100); HDL Cholesterol 64 mg/dl (40-60); Magnesium 2.3 mg/dl (1.6-2.3); Sodium 139 mmol/L (136-145); Total Protein,Serum 6.7 g/dl (6.3-8.2); Triglycerides 104 mg/dl (30-150); VLDL Cholesterol 21 mg/dL (0-40)
[2024-09-22 16:18] LABS: Direct LDL Cholesterol 86.44 mg/dL (100-129)
[2024-09-22 16:31] LABS: Free T4 (Free Thyroxine) 0.78 ng/dl (0.78-2.19)
[2024-09-22 16:37] LABS: Thyroid Stimulating Hormone 1.23 uIU/mL (0.465-4.68)
== END 2024-09-22 23:59 | disposition home or self-care (01) ==
LOC: LAB 15:19
PROVIDERS: PCP Physician Assistant; Visit Provider Internal Medicine
DX: I25.10 Atherosclerotic heart disease of native coronary artery without angina pectoris (principal); I10 Essential (primary) hypertension
CPT/HCPCS: 36415; 80048; 80061; 80076; 83735; 84439; 84443; 85025